=== PATIENT | female | born 1960 | race Caucasian/White ===

== ENCOUNTER → 2017-06-01 10:09 | Outpatient (CLI) | payer MEDICAID, SELFPAY ==
[2017-06-01 10:13] LABS: Adenovirus,PCR Not Detected (NotDetected); Bordetella Pertussis Not Detected (NotDetected); Chlamydophila Pneumoniae, PCR Not Detected (NotDetected); Coronavirus 229E Not Detected (NotDetected); Coronavirus NL63 Not Detected (NotDetected); Coronavirus OC43 Not Detected (NotDetected); Coronovirus HKU1,PCR Not Detected (NotDetected); Human Metapneumovirus Not Detected (NotDetected); Influenza A, PCR Not Detected (NotDetected); Influenza AH1, 2009 Not Detected (NotDetected); Influenza AH1, PCR Not Detected (NotDetected); Influenza AH3,PCR Not Detected (NotDetected); Influenza B, PCR Not Detected (NotDetected); Mycoplasma Pneumoniae, PCR Not Detected (NotDected); Parainfluenza 1, PCR Not Detected (NotDetected); Parainfluenza 2, PCR Not Detected (NotDetected); Parainfluenza 3, PCR Not Detected (NotDetected); Parainfluenza 4, PCR Not Detected (NotDetected); Respiratory Syncytial Virus Not Detected (NotDetected)
[2017-06-01 21:09] LABS: Rhinovirus/Enterovirus Detected (NotDetected)
== END ==
PROVIDERS: Visit Provider Physician Assistant
DX: R50.9 Fever, unspecified (principal); R09.89 Other specified symptoms and signs involving the circulatory and respiratory systems
CPT/HCPCS: 87486; 87581; 87633; 87798

== ENCOUNTER → 2017-12-18 09:47 | Outpatient (CLI) | payer MEDICAID, SELFPAY ==
[2017-12-18 09:54] LABS: Adenovirus,PCR Not Detected (NotDetected); Bordetella Pertussis Not Detected (NotDetected); Chlamydophila Pneumoniae, PCR Not Detected (NotDetected); Coronavirus 229E Not Detected (NotDetected); Coronavirus NL63 Not Detected (NotDetected); Coronavirus OC43 Not Detected (NotDetected); Coronovirus HKU1,PCR Not Detected (NotDetected); Human Metapneumovirus Not Detected (NotDetected); Influenza A, PCR Not Detected (NotDetected); Influenza AH1, 2009 Not Detected (NotDetected); Influenza AH1, PCR Not Detected (NotDetected); Influenza AH3,PCR Not Detected (NotDetected); Influenza B, PCR Not Detected (NotDetected); Mycoplasma Pneumoniae, PCR Not Detected (NotDected); Parainfluenza 1, PCR Not Detected (NotDetected); Parainfluenza 2, PCR Not Detected (NotDetected); Parainfluenza 3, PCR Not Detected (NotDetected); Parainfluenza 4, PCR Not Detected (NotDetected); Respiratory Syncytial Virus Not Detected (NotDetected); Rhinovirus/Enterovirus Not Detected (NotDetected)
== END ==
PROVIDERS: PCP Physician Assistant; Visit Provider Physician Assistant
DX: R05 Cough (principal); R09.89 Other specified symptoms and signs involving the circulatory and respiratory systems
CPT/HCPCS: 87486; 87581; 87633; 87798

== ENCOUNTER 2023-08-24 11:09 | Outpatient (CLI) | payer MEDICAID, SELFPAY ==
--- NOTE | 2023-08-24 | CA_ITS ---
APPROVED REPORT Exam: Pharmacologic Technologist: Yoselin James, Ht: 5 ft 7 in Wt: 250 lbs BSA: 2.22 m2 HR: 85 bpm BP: 110/74 mmHg Rhythm: NSR Medical History Medical History: HTN, Hyperlipidemia, Diabetes, Smoking Medications: Lisinopril,,,,, Aspirin,,,,, Atenolol,,,,, Metformin,,,,, Gabapentin,,,,, Atorvastatin,,,,, Glipizide,,,,, Combivent,,,,, TopIRAMATE,,,,, CloPIdogrel,,,,, LoraTADINE,,,,, SeMaglutide,,,,, Cardiac Risk Factors: HTN, Hyperlipidemia, , Diabetes , Smoking Stress Test Details Test: LEXISCAN HR Resting HR: 85 bpm Max Heart Rate (APMHR): 159 bpm Max HR Achieved: 98 bpm Target HR (85% APMHR): 135 bpm % of APMHR: 62 Recovery HR: 91 bpm BP Resting BP: 110/74 mmHg Max BP: 127/66 mmHg Recovery BP: 127.0/66.0 mmHg ECG Resting ECG: NSR Stress ECG: No significant ST changes Arrhythmia: None Clinical Exercise duration: 04:01 min Highest Stage Achieved: Exercise capacity: 1.0 METs Stress ECG Conclusion PT HAD SOA AND HEAD DISCOMFORT NO CP NO SIGNIFICANT ST CHANGES UNREMARKABLE LEXISCAN STRESS Test Summary REST 10:03 . . 85 . 110/ 74 . . Stage 1 01:00 . . 92 . . . . Stage 2 01:00 . . 95 . 107/ 56 . . Stage 3 01:00 . . 93 . 116/ 70 . . Stage 4 01:00 . . 93 . 125/ 73 . . Stage 4 01:01 . . 93 . 125/ 73 . Stop exercise at 04:01 RECOVERY 01:00 . . 92 . . . . RECOVERY 02:00 . . 91 . . . . RECOVERY 03:00 . . 91 . 127/ 66 . . RECOVERY 03:35 . . 90 . 127/ 66 . . Electronically signed by : Maria Elena Marley MD 08/27/2023 13:08:30
--- NOTE | 2023-08-24 11:10 | NM_ITS ---
APPROVED REPORT Exam: Nuclear Stress Test Indication: CAD, H/O LA, 5 STENTS, HTN, DM, HYPERLIPIDEMIA, TOB USE, FM HX, ANGINE, SOB, PALPITATIONS, FATIGUE Patient Location: Outpatient Stress Tech: Yoselin James [place] Tech:Celine CasasKARINA dewey RT (R)(N)(M) Ht: 5 ft 7 in Wt: 250 lbs Bra Size: DD HR: 85 bpm BP: 110/74 mmHg BSA: 2.22 m2 TID: 1.16 BMI: 39.1 History: CAD, H/O LA, 5 STENTS, HTN, DM, HYPERLIPIDEMIA, TOB USE, FM HX, ANGINE, SOB, PALPITATIONS, FATIGUE Procedure: Patient received 0.4 mg of intravenous Lexiscan, resting heart rate 85 bpm, resting blood pressure 110/74 mmHg, with Lexiscan maximum heart rate achieved was 98 bpm which is % of the maximum predicted heart rate and blood pressure was 127/66 mmHg. With Lexiscan, patient denied any complaint of chest pain. Cardiac Stress and Resting SPECT Images: Cardiac Stress and Resting SPECT images were obtained using technetium 99m Myoview 31.4 mCi stress and 10.71 mCi at rest. Resting and stress imaging in supine and prone positions demonstrate no evidence of fixed or reversible perfusion defects. Gated imaging demonstrates normal global and regional LV systolic function. LVEF is calculated at 66%. Conclusion: No evidence of fixed or reversible perfusion defects. Gated imaging demonstrates normal global and regional LV systolic function. LVEF is calculated at 66%. Electronically signed by : Maria Elena Marley MD 08/27/2023 13:10:39
--- NOTE | 2023-08-24 11:22 | CA_ITS ---
FINAL REPORT TECHNIQUE: Color Doppler, duplex Doppler and mackay scale sonography of the bilateral neck vasculature was performed. Velocities were measured in the carotid arteries. Stenosis evaluation based on velocity criteria. CLINICAL HISTORY: NICA H/O L CAROTID SURGERY COMPARISON: None FINDINGS: The peak systolic velocity of the right common carotid artery is 99 cm/sec and internal carotid artery 147 cm/sec. The diastolic velocity in the internal carotid artery is 50 to cm/sec. The ICA/CCA ratio is 1.89. Visually, a small amount of plaque is seen. These findings are consistent with less than 50% stenosis. The external carotid artery is patent. The right vertebral artery is patent with antegrade flow. The left common carotid artery appears patent, however no velocity measurements were obtained. 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 The left vertebral artery is patent with antegrade flow. IMPRESSION: No evidence of carotid stenosis on the right side. 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 Bilateral patent vertebral arteries. If indicated, CTA or MRA could further evaluate. Reviewed, Interpreted and Dictated by Issa Werner III, MD Transcribed by Tara Lemus Authenticated and . [facility]
[2023-08-24] MEDS: SODIUM CHLORIDE 0.9% 10ML SYR (RAD ONLY) 10 ML IV ×2 (11:30→12:59)
[2023-08-24] MEDS: REGADENOSON 0.4MG/5ML SYRINGE 0.400000000000000022 MG IV (12:59)
[2023-08-24] MEDS: ISOTOPE MYOVIEW (PER STUDY) 1 DOSE IV (13:00)
== END 2023-08-24 23:59 | disposition home or self-care (01) ==
LOC: RAD 11:10
PROVIDERS: PCP Nurse Practitioner Family; Visit Provider Nurse Practitioner Family
DX: R06.02 Shortness of breath (principal); I25.118 Atherosclerotic heart disease of native coronary artery with other forms of angina pectoris; I65.23 Occlusion and stenosis of bilateral carotid arteries
CPT/HCPCS: 78452; 93017; 93018; 93880; A9502; J2785

== ENCOUNTER → 2024-08-21 06:52 | Day surgery (SDC) | payer MEDICAID, SELFPAY ==
[2024-08-19 15:38] VITALS: BMI 34.4
[2024-08-21] MEDS: LACTATED RINGERS 1000ML 1,000 ML 50 ML IV (07:41)
[2024-08-21 07:44] VITALS: BP 117/60; PULSE 79; RESP 18; TEMP 36.2; O2SAT 97
[2024-08-21 07:58] LABS: POC Glucose,Bedside 152 (70-110)
--- NOTE | 2024-08-21 08:15 | EXP.HP ---
History of Present Illness *Admission Date: 08/21/24 *Reason for visit:: Personal history of adenomatous colon polyps *History of present illness: Mrs. Benitez is a 64-year-old female who is here for surveillance colonoscopy secondary to a personal history of adenomatous colon polyps. The examination is deemed medically necessary for surveillance colonoscopy. The patient has been seen, interviewed and examined prior to the procedure by both myself and the anesthesia provider. [facility] Disclaimer: The information contained in this section may have been updated after the patient was seen, as this information can be updated by other users. Medical History (Updated 08/21/24 @ 08:16 by Stefan Springer II, MD) Encounter for pre-operative cardiovascular clearance Stenosis of carotid artery Peripheral arterial disease Diabetes mellitus Hyperlipidemia Hypertension SOB (shortness of breath) on exertion Angina pectoris COPD mixed type CAD (coronary artery disease) Surgical History S/P cardiac cath Family History Other No significant family history Social History Smoking Status: Current every day smoker tobacco type: cigarettes alcohol intake: never substance use type: denies use current occupational status: other Travel in the last 8 weeks?: None (NA) caffeine: Yes Have you lived/traveled outside [place] in past 30 days?: No Contact w/someone who lives/traveled outside US past 30 days?: No Exposure to someone with infectious disease in past 14 days?: No Do you have a fever (greater than 100.4 F or 38 C)?: No Have you tested positive for COVID-19?: No Exposed to someone with COVID-19 in past 14 days?: No Do you have a sore throat?: No Do you have a cough?: No Do you have any weakness?: No Do you have any diarrhea?: No Are you experiencing any unusual bleeding?: No Do you have any muscle aches/pain?: No Do you have any abdominal pain?: No Are you experiencing loss of taste or smell?: No Other Medical History Have you received the Flu Vaccine for this season: No Have you received the Pneumonia Vaccine: No Review of Systems Review of Systems Review of systems (narrative): Negative *Cardiovascular Comments: Negative *Gastrointestinal Comments: Negative *Genitourinary Comments: Negative *Musculoskeletal Comments: Negative *Neurologic Comments: Negative Meds Home Medications and Allergies Home Medications ?Medication ?Instructions ?Recorded ?Confirmed ?Type atenolol 50 mg tablet 50 mg PO DAILY bp 10/04/18 08/21/24 History atorvastatin 40 mg tablet 40 mg PO HS Cholesterol 10/04/18 08/21/24 History clopidogrel 75 mg tablet 75 mg PO DAILY heart. 10/04/18 08/21/24 History aspirin 81 mg tablet,delayed 81 mg PO DAILY 08/21/23 08/21/24 History release bupropion HCl 150 mg tablet,12 hr 150 mg PO BID 08/21/23 08/21/24 History sustained-release esomeprazole magnesium 20 mg 20 mg PO DAILY 08/21/23 08/21/24 History capsule,delayed release gabapentin 400 mg capsule 400 mg PO BID 08/21/23 08/21/24 History glipizide 10 mg tablet 10 mg PO DAILY 08/21/23 08/21/24 History insulin detemir U-100 100 unit/mL 40 unit SQ BID 08/21/23 08/21/24 History (3 mL) subcutaneous pen (Levemir FlexPen) ipratropium 20 mcg-albuterol 100 2 puff inhalation BID 08/21/23 08/21/24 History mcg/actuation mist for inhalation (Combivent Respimat) isosorbide mononitrate 30 mg 30 mg PO DAILY #90 tabs 08/21/23 08/21/24 Rx tablet,extended release 24 hr lisinopril 10 mg tablet 10 mg PO DAILY 08/21/23 08/21/24 History loratadine 10 mg tablet 10 mg PO DAILY 08/21/23 08/21/24 History metformin 1,000 mg tablet 1,000 mg PO BID 08/21/23 08/21/24 History oxycodone-acetaminophen 10 mg-325 1 tab PO BID PRN Pain 08/21/23 08/21/24 History mg tablet semaglutide 1 mg/dose (4 mg/3 mL) 1 mg SQ WEEKLY 08/21/23 08/21/24 History subcutaneous pen injector (Ozempic) topiramate 100 mg capsule,extended 100 mg PO DAILY 08/21/23 08/21/24 History release 24 hr ranolazine 500 mg tablet,extended See Rx Instructions .Route 02/18/24 08/21/24 Rx release,12 hr .COMPLEX #180 tabs sodium,potassium,mag sulfates 17.5 See Rx Instructions PO .COMPLEX 07/14/24 08/21/24 Rx gram-3.13 gram-1.6 gram oral soln #354 mL (Suprep Bowel Prep Kit) New Prescriptions to Start Prescriptions: Allergies Allergy/AdvReac Type Severity Reaction Status Date / Time No Known Allergies Allergy Verified 08/21/24 07:43 Exam Data for Last 24 hours Vital signs and Labs for Last 24 Hours: Temp Pulse Resp BP Pulse Ox O2 Del Method 97.2 F L 79 18 117/60 97 Room Air 08/21/24 07:44 08/21/24 07:44 08/21/24 07:44 08/21/24 07:44 08/21/24 07:44 08/21/24 07:44 Laboratory Results - last 24 hr 08/21/24 07:50: POC Glucose 152 H I & O for Last 24 hours: Intake & Output 08/18/24 08/19/24 08/20/24 08/21/24 23:59 23:59 23:59 23:59 Weight 220 lb *Routine HEENT Exam Head: Present normocephalic Eye: Present EOMI and PERRL ENT: Present mucous membranes moist *Routine Neck Exam Neck: Present supple *Routine Respiratory Exam Respiratory: Present CTA bilaterally *Routine Cardiovascular Exam Cardiovascular: Present RRR *Routine Abdominal Exam Abdominal: Present soft and normoactive bowel sounds; Absent tenderness *Routine Rectal Exam Rectal:: deferred *Routine Genitalia Exam Genitalia:: deferred *Routine Extremities Exam Extremities: Absent cyanosis, clubbing or edema *Routine Skin Exam Skin: Present warm; Absent rash *Routine Neurological Exam Neurological: Present alert and oriented X3 Assessment and Plan *Assessment and plan (1) Personal history of adenomatous and serrated colon polyps: Status: Acute Category: Medical Code(s): Z86.0101 - Personal history of adenomatous and serrated colon polyps Plan A/P: 1. Personal history of adenomatous colon polyps is the preprocedural diagnosis. The patient's last colonoscopy in November 2018 revealed 12 polyps (tubular adenomas x 9/hyperplastic polyps x 3) which were removed. The patient will be anesthetized/sedated using MAC sedation. The patient has been seen and examined. Cardiac and lung assessment prior to the examination is stable. Proceed with planned surveillance colonoscopy.
--- NOTE | 2024-08-21 08:16 | P.PNANES_ITS ---
[facility] Disclaimer: The information contained in this section may have been updated after the patient was seen, as this information can be updated by other users. Medical History (Updated 08/21/24 @ 08:16 by Stefan Springer II, MD) Encounter for pre-operative cardiovascular clearance Stenosis of carotid artery Peripheral arterial disease Diabetes mellitus Hyperlipidemia Hypertension SOB (shortness of breath) on exertion Angina pectoris COPD mixed type CAD (coronary artery disease) Surgical History S/P cardiac cath Family History Other No significant family history Social History Smoking Status: Current every day smoker tobacco type: cigarettes alcohol intake: never substance use type: denies use current occupational status: other Travel in the last 8 weeks?: None (NA) caffeine: Yes Have you lived/traveled outside [place] in past 30 days?: No Contact w/someone who lives/traveled outside US past 30 days?: No Exposure to someone with infectious disease in past 14 days?: No Do you have a fever (greater than 100.4 F or 38 C)?: No Have you tested positive for COVID-19?: No Exposed to someone with COVID-19 in past 14 days?: No Do you have a sore throat?: No Do you have a cough?: No Do you have any weakness?: No Do you have any diarrhea?: No Are you experiencing any unusual bleeding?: No Do you have any muscle aches/pain?: No Do you have any abdominal pain?: No Are you experiencing loss of taste or smell?: No [facility] Anesthesia Checklist Patient Identification Patient Identification: Arm Band Structural Data Admitted From: Home Planned Operative Procedure/s: Colonoscopy Consent for Planned Operative Procedure(s) Verified: Yes Verified Documents: Surgical Consent and History and Physical NPO Status Verified Time NPO: 00:00 Additional verifications Anesthesia Reactions: No Airway Assessment Mallampati Score:: Class II C-Spine Mobility Assessed: Yes TMJ Mobility Assessed: Yes Dentition: Edentulous (upper and lower dentures removed) Neurological Assessment Level of Consciousness: Awake, Alert and Appropriate Anesthesia Plan Anesthesia Risk discussed: Yes Anesthesia Plan: Verified ASA Class: III Anesthesia Type: MAC
--- NOTE | 2024-08-21 08:48 | HMH.PROCNOTE ---
[facility] Procedure Note Date: 08/21/24 Time: 08:48 Procedure Note:: Colonoscopy Procedure Report: Colonoscopy with cold snare polypectomy Endoscopist: Stefan Springer II, MD Referring physician: BO Collins Date of Procedure: August 21, 2024 Equipment: Olympus 190 variable stiffness pediatric colonoscope Sedation: MAC sedation Indication: Mrs. Benitez is a 64-year-old female who is here for follow-up surveillance colonoscopy secondary to a personal history of adenomatous colon polyps. The patient did have a colonoscopy in November 2018 and had 12 polyps (tubular adenomas x 9/hyperplastic polyps x 3) removed. She reports no abdominal pain, weight loss, change in her bowel habits or rectal bleeding. She reports no family history of colon cancer. Procedure: Prior to the procedure, a history and physical exam was performed, and patient's medications and allergies were reviewed. The risks, benefits and alternatives of the sedation and procedure were discussed with the patient. All questions were answered and informed consent was obtained. The patient was brought to the procedure room. Patient identification and proposed procedure were verified by the physician and the nurse. The patient was placed in a left lateral decubitus position and the scope was passed under direct vision. Throughout the procedure, the patient's blood pressure, pulse, and oxygen saturations were monitored continuously. The colonoscopy was accomplished without difficulty. The patient tolerated the procedure well. Findings: On digital rectal examination there was normal rectal tone. There were no external hemorrhoids. The colonoscope was introduced through the anal canal to the rectum and advanced to the cecum. The ileocecal valve and appendiceal orifice were identified. The scope was advanced a short distance into the ileum which appeared grossly normal. The scope was then withdrawn into the colon. There were 5 colon polyps (ascending x 1 (3 mm), transverse x 1 (4 mm), descending x 1 (4 mm) and sigmoid x 2 (6 and 3 mm)). These were all removed via cold snare polypectomy. The remaining cecum, ascending, transverse, descending, sigmoid and rectum were grossly normal. There were no other mucosal abnormalities identified. Upon retroflexion within the rectum there were grade 1-2 internal hemorrhoids. The preparation was excellent throughout with [place] Preparation Score of 9. The cecal time was 12 minutes. Impression: 1. Diminutive colonic polyps x 5 Plan: I will follow-up the polyp histology and recommend repeat surveillance colonoscopy again in 5 years based upon the pathology.
[2024-08-21 08:50] VITALS: BP 82/45; PULSE 73; RESP 16; TEMP 36.3; O2SAT 98
[2024-08-21 09:00] VITALS: BP 115/50; PULSE 71; RESP 16; O2SAT 100
[2024-08-21 09:10] VITALS: BP 102/65; PULSE 70; RESP 16; O2SAT 99
[2024-08-21 09:20] VITALS: BP 101/49; PULSE 69; RESP 16; O2SAT 100
== END | disposition home or self-care (01) ==
PROVIDERS: PCP Nurse Practitioner Family; Visit Provider Internal Medicine Gastroenterology
PROC: 0DJD8ZZ Inspection of Lower Intestinal Tract, Via Natural or Artificial Opening Endoscopic (ICD-10-PCS; CPT 45378; principal; 2024-08-21 08:30)
DX: D12.2 Benign neoplasm of ascending colon (principal); D12.5 Benign neoplasm of sigmoid colon; I25.10 Atherosclerotic heart disease of native coronary artery without angina pectoris; J44.89 Other specified chronic obstructive pulmonary disease; E11.9 Type 2 diabetes mellitus without complications; E78.5 Hyperlipidemia, unspecified; I10 Essential (primary) hypertension; Z86.0101 Personal history of adenomatous and serrated colon polyps; F17.210 Nicotine dependence, cigarettes, uncomplicated; Z79.899 Other long term (current) drug therapy; Z79.4 Long term (current) use of insulin; Z79.82 Long term (current) use of aspirin
CPT/HCPCS: 45385; 82962; J7120

== ENCOUNTER 2024-09-01 10:46 | Outpatient (CLI) | payer MEDICAID, SELFPAY ==
--- OUTSIDE RECORDS SUMMARY | 2024-09-01 10:56 | XMS_ITS | Data Portability ---
Author Organization [place] [employer] [place] - [facility] Address [address] [place] [address] Assessment No assessment recorded. Plan of Treatment Reminders Order Date Submit Date Provider Last Modified By Organization Details Last Modified Time Details Appointments None recorded. Lab urinalysis, dipstick [address], [id number], 5 09:08:39 culture, urine 2024 025 [facility] ([place]), [address] [place] [address], [address], 5 17:08:52 vitamin D, 25-hydroxy, total, serum 2024 025 [facility] [address] [place] [address], [address], 5 17:08:51 HbA1c (hemoglobin A1c), blood [address], [address], 5 09:08:39 comprehensi ve metabolic 1998 panel, serum or plasma 2024 025 [facility] [address] [place] [address], [address], 5 17:08:50 CBC w/ auto diff 2024 025 [facility] [address] [place] [address], [address], 5 17:08:49 HbA1c (hemoglobin A1c), blood [address], [address] [place] [address], [address], 5 08:44:27 vitamin D, 25-hydroxy, total, serum 2023 024 [facility] ([place]), [address] [place] [address], [address], 4 07:09:40 HbA1c (hemoglobin A1c), blood [address], [address] [place] [address], [address], 4 08:45:09 CMP, serum or plasma 2023 024 [facility] ([place]), [address] [place] [address], [address], 4 07:09:39 CBC w/ auto diff 2023 024 [facility] ([place]), [address] [place] [address], [address], 4 07:09:39 lipid panel, serum 2023 024 [facility]), [address] [place] [address], [address], 4 07:09:40 HbA1c (hemoglobin A1c), blood [address], [address] [place] [address], [address], 4 11:15:37 CBC w/ auto diff 2023 024 [facility], [address], [place], [address], 4 06:24:27 CMP, serum or plasma 2023 024 [facility], [address], [place], [address], 4 06:24:27 Referral cardiologis t referral - first available appt 2023 024 [facility], [address], [place], [address], 4 14:07:[address] referral - first avail 2023 024 berlin Levi MD, [address], [address], [place], [address], 4 16:09:11 Procedures colonoscopy screening (PROC) - [facility] appt first week of JUNE please 2024 025 ANTOLIN Springer MD, [address], [place], [place], [address], 5 10:38:34 Surgeries None recorded. Imaging None recorded. Medication Orders Macrobid 100 mg capsule 2024 025 [facility], [address] [place] [address], [address], 5 09:47:45 Wellbutrin XL 300 mg 24 hr tablet, extended release 2023 024 [facility], [address] [place] [address], [address], 5 09:34:17 bupropion HCl SR 150 mg tablet,12 hr sustained-r elease 2023 024 [email or web address] [facility], [address] [place] [address], [address], 5 08:47:10 Nicoderm CQ 21 mg/24 hr daily transdermal patch 2023 0[facility] [address] [place] [address], [address], 4 13:28:48 Patient TargetsNo targets recorded. Patient InstructionsNo instructions recorded. Reason for Referral Rn Mental Health Referral for A cute hypoxemic respiratory failure first avail Referring Physician: Jamie Harrington [facility], Encounter Date: 08/03/2023 Gis Analyst Referral for At herosclerosis of coronary artery without angina pectoris first available appt Referring Physician: Jamie Harrington [facility], Encounter Date: 08/03/2023 Results Created Date Observation Date Name Description Value Unit Range Abnormal Flag Note LastModifiedBy Organization Detail LastModifiedTime 08/03/19 24 08/04/2023 COMPR EHENS KYLIE METAB OLIC PANEL glucose 102 mg/dL 65-139 normal Non-f astin g refer ence inter sven Not Available [facility] [address] [place], [address], 08/04/2023 07:06:27 08/03/19 24 08/04/2023 COMPR EHENS KYLIE METAB OLIC PANEL urea nitrogen (BUN) 19 mg/dL 7-25 normal Not Available [facility] [address] [facility] [place], [address], 08/04/2023 07:06:27 08/03/19 24 08/04/2023 COMPR EHENS KYLIE METAB OLIC PANEL creatinine 0.97 mg/dL 0.50-1 .05 normal Not Available [facility] [address] [place], [address], 08/04/2023 07:06:27 08/03/19 24 08/04/2023 COMPR EHENS KYLIE METAB OLIC PANEL eGFR 66 mL/mi n/1.7 3m2 > or = 60 normal Not Available [facility] [address] [place], [address], 08/04/2023 07:06:27 08/03/19 24 08/04/2023 COMPR EHENS KYLIE METAB OLIC PANEL BUN/creatini ne ratio SEE NOTE: (calc ) 6-22 Not Repor dileep: BUN and Creat inine are withi n refer ence range . Not Available [facility] [address] [place], [address], 08/04/2023 07:06:27 08/03/19 24 08/04/2023 COMPR EHENS KYLIE METAB OLIC PANEL sodium 141 mmol/ L 135-14 6 normal Not Available [facility] [address] [place], [address], 08/04/2023 07:06:27 08/03/19 24 08/04/2023 COMPR EHENS KYLIE METAB OLIC PANEL potassium 3.8 mmol/ L 3.5-5. 3 normal Not Available [facility] [address] [facility] [place], [address], 08/04/2023 07:06:27 08/03/19 24 08/04/2023 COMPR EHENS KYLIE METAB OLIC PANEL chloride 103 mmol/ L 98-110 normal Not Available [facility] [address] [facility] [place], [address], 08/04/2023 07:06:27 08/03/19 24 08/04/2023 COMPR EHENS KYLIE METAB OLIC PANEL carbon dioxide 24 mmol/ L 20-32 normal Not Available [facility] [address] [facility] [place], [address], 08/04/2023 07:06:27 08/03/19 24 08/04/2023 COMPR EHENS KYLIE METAB OLIC PANEL calcium 9.8 mg/dL 8.6-10 .4 normal Not Available [facility] [address] [place], [address], 08/04/2023 07:06:27 08/03/19 24 08/04/2023 COMPR EHENS KYLIE METAB OLIC PANEL protein, total 6.9 g/dL 6.1-8. 1 normal Not Available [facility] [address] [facility] [place], [address], 08/04/2023 07:06:27 08/03/19 24 08/04/2023 COMPR EHENS KYLIE METAB OLIC PANEL albumin 3.9 g/dL 3.6-5. 1 normal Not Available [facility] [address] [place], [address], 08/04/2023 07:06:27 08/03/19 24 08/04/2023 COMPR EHENS KYLIE METAB OLIC PANEL globulin 3.0 g/dL_ (calc ) 1.9-3. 7 normal Not Available [facility] [address] [facility] [place], [address], 08/04/2023 07:06:27 08/03/19 24 08/04/2023 COMPR EHENS KYLIE METAB OLIC PANEL albumin/glob ulin ratio 1.3 (calc ) 1.0-2. 5 normal Not Available [facility] [address] [facility] [place], [address], 08/04/2023 07:06:27 08/03/19 24 08/04/2023 COMPR EHENS KYLIE METAB OLIC PANEL bilirubin, total 0.3 mg/dL 0.2-1. 2 normal Not Available [facility] [address] [place], [address], 08/04/2023 07:06:27 08/03/19 24 08/04/2023 COMPR EHENS KYLIE METAB OLIC PANEL alkaline phosphatase 76 U/L 37-153 normal Not Available [facility] [address] [place], [address], 08/04/2023 07:06:27 08/03/19 24 08/04/2023 COMPR EHENS KYLIE METAB OLIC PANEL AST 10 U/L 10-35 normal Not Available [facility] [address], [place], [address], 08/04/2023 07:06:27 08/03/19 24 08/04/2023 COMPR EHENS KYLIE METAB OLIC PANEL ALT 10 U/L 6-29 normal Not Available [facility] [address] [place], [address], 08/04/2023 07:06:27 08/03/19 24 08/04/2023 CBC (INCL UDES DIFF/ PLT) white blood cell count 19.4 thous and/u L 3.8-10 .8 high Not Available [facility] [address] [place], [address], 08/04/2023 06:24:27 08/03/19 24 08/04/2023 CBC (INCL UDES DIFF/ PLT) red blood cell count 4.46 paris on/uL 3.80-5 .10 normal Not Available [facility] [address], [place], [address], 08/04/2023 06:24:27 08/03/19 24 08/04/2023 CBC (INCL UDES DIFF/ PLT) hemoglobin 13.8 g/dL 11.7-1 5.5 normal Not Available [facility] [address], [place], [address], 08/04/2023 06:24:27 08/03/19 24 08/04/2023 CBC (INCL UDES DIFF/ PLT) hematocrit 42.3 % 35.0-4 5.0 normal Not Available [facility] [address], [place], [address], 08/04/2023 06:24:27 08/03/19 24 08/04/2023 CBC (INCL UDES DIFF/ PLT) MCV 94.8 fL 80.0-1 00.0 normal Not Available [facility] [address], [place], [address], 08/04/2023 06:24:27 08/03/19 24 08/04/2023 CBC (INCL UDES DIFF/ PLT) MCH 30.9 pg 27.0-3 3.0 normal Not Available [facility] [address], [place], [address], 08/04/2023 06:24:27 08/03/19 24 08/04/2023 CBC (INCL UDES DIFF/ PLT) MCHC 32.6 g/dL 32.0-3 6.0 normal Not Available [facility] [address], [place], [address], 08/04/2023 06:24:27 08/03/19 24 08/04/2023 CBC (INCL UDES DIFF/ PLT) RDW 13.3 % 11.0-1 5.0 normal Not Available [facility] [address], [place], [address], 08/04/2023 06:24:27 08/03/19 24 08/04/2023 CBC (INCL UDES DIFF/ PLT) platelet count 323 thous and/u L 140-40 0 normal Not Available [facility] [address], [place], [address], 08/04/2023 06:24:27 08/03/19 24 08/04/2023 CBC (INCL UDES DIFF/ PLT) MPV 10.9 fL 7.5-12 .5 normal Not Available [facility] [address] [facility], [place], [address], 08/04/2023 06:24:27 08/03/19 24 08/04/2023 CBC (INCL UDES DIFF/ PLT) absolute neutrophils 93264 cells /uL 1500-7 800 high Not Available [facility] [address] [facility] [facility], [place], [address], 08/04/2023 06:24:27 08/03/19 24 08/04/2023 CBC (INCL UDES DIFF/ PLT) absolute lymphocytes 2929 cells /uL 850-39 00 normal Not Available [facility] [address] [facility], [place], [address], 08/04/2023 06:24:27 08/03/19 24 08/04/2023 CBC (INCL UDES DIFF/ PLT) absolute monocytes 757 cells /uL 200-95 0 normal Not Available [facility] [address] [facility], [place], [address], 08/04/2023 06:24:27 08/03/19 24 08/04/2023 CBC (INCL UDES DIFF/ PLT) absolute eosinophils 155 cells /uL 15-500 normal Not Available [facility] [address] [facility], [place], [address], 08/04/2023 06:24:27 08/03/19 24 08/04/2023 CBC (INCL UDES DIFF/ PLT) absolute basophils 78 cells /uL 0-200 normal Not Available [facility] [address] [facility], [place], [address], 08/04/2023 06:24:27 08/03/19 24 08/04/2023 CBC (INCL UDES DIFF/ PLT) neutrophils 79.8 % normal Not Available [facility] [address] [facility], [place], [address], 08/04/2023 06:24:27 08/03/19 24 08/04/2023 CBC (INCL UDES DIFF/ PLT) lymphocytes 15.1 % normal Not Available [facility] [address] [facility], [place], [address], 08/04/2023 06:24:27 08/03/19 24 08/04/2023 CBC (INCL UDES DIFF/ PLT) monocytes 3.9 % normal Not Available [facility] [address] [facility], [place], [address], 08/04/2023 06:24:27 08/03/19 24 08/04/2023 CBC (INCL UDES DIFF/ PLT) eosinophils 0.8 % normal Not Available [facility] [address] [facility] [place], [address], 08/04/2023 06:24:27 08/03/19 24 08/04/2023 CBC (INCL UDES DIFF/ PLT) basophils 0.4 % normal Not Available [facility] [address] [facility] [place], [address], 08/04/2023 06:24:27 10/01/19 24 10/01/2023 HbA1c (hemo globi n A1c), blood HbA1c 7.2 Not Available [address], [address], 10/01/2023 08:02:52 01/01/2001/02/2024 CBC WITH DIFFE RENTI AL/PL ATELE T WBC 13.3 x10e3 /uL 3.4-10 .8 above high normal Not Available [facility] ([facility]) [address] [facility], [place], [address], 01/02/2024 07:09:38 01/01/20 01/02/2024 CBC WITH DIFFE RENTI AL/PL ATELE T RBC 4.07 x10e6 /uL 3.77-5 .28 normal Not Available [facility] ([facility]) [address] [facility], [place], [address], 01/02/2024 07:09:38 01/01/20 24 01/02/2024 CBC WITH DIFFE RENTI AL/PL ATELE T hemoglobin 13.4 g/dL 11.1-1 5.9 normal Not Available [facility] ([facility]) [address] [facility], [place], [address], 01/02/2024 07:09:38 01/01/2001/02/2024 CBC WITH DIFFE RENTI AL/PL ATELE T hematocrit 40.2 % 34.0-4 6.6 normal Not Available [facility] ([facility]) [address] [facility], [place], [address], 01/02/2024 07:09:38 01/01/2001/02/2024 CBC WITH DIFFE RENTI AL/PL ATELE T MCV 99 fL 79-97 above high normal Not Available [facility] ([facility]) [address] [place], [address], 01/02/2024 07:09:38 01/01/2001/02/2024 CBC WITH DIFFE RENTI AL/PL ATELE T MCH 32.9 pg 26.6-3 3.0 normal Not Available [facility] ([facility]) [address] [place], [address], 01/02/2024 07:09:38 01/01/2001/02/2024 CBC WITH DIFFE RENTI AL/PL ATELE T MCHC 33.3 g/dL 31.5-3 5.7 normal Not Available [facility] ([facility]) [address] [place], [address], 01/02/2024 07:09:38 01/01/20 24 01/02/2024 CBC WITH DIFFE RENTI AL/PL ATELE T RDW 12.8 % 11.7-1 5.4 Not Available [facility] ([facility]) [address] [facility], [place], [address], 01/02/2024 07:09:38 01/01/20 24 01/02/2024 CBC WITH DIFFE RENTI AL/PL ATELE T platelets 291 x10e3 /uL 150-45 0 normal Not Available [facility] ([facility]) [address] [facility], [place], [address], 01/02/2024 07:09:38 01/01/2001/02/2024 CBC WITH DIFFE RENTI AL/PL ATELE T neutrophils 78 % not estab. normal Not Available [facility] ([facility]) [address] [facility], [place], [address], 01/02/2024 07:09:38 01/01/2001/02/2024 CBC WITH DIFFE RENTI AL/PL ATELE T lymphs 16 % not estab. normal Not Available [facility] ([facility]) [address] [facility], [place], [address], 01/02/2024 07:09:38 01/01/20 24 01/02/2024 CBC WITH DIFFE RENTI AL/PL ATELE T monocytes 4 % not estab. normal Not Available [facility] ([facility]) [address] [facility], [place], [address], 01/02/2024 07:09:38 01/01/2001/02/2024 CBC WITH DIFFE RENTI AL/PL ATELE T eos 1 % not estab. normal Not Available [facility] ([facility]) [address] [facility], [place], [address], 01/02/2024 07:09:38 01/01/20 24 01/02/2024 CBC WITH DIFFE RENTI AL/PL ATELE T basos 1 % not estab. normal Not Available [facility] ([facility]) [address] [place], [address], 01/02/2024 07:09:38 01/01/2001/02/2024 CBC WITH DIFFE RENTI AL/PL ATELE T immature cells CHIEF SUPPLY CHAIN OFFICER Not Available [facility] ([facility]) [address] [place], [address], 01/02/2024 07:09:38 01/01/2001/02/2024 CBC WITH DIFFE RENTI AL/PL ATELE T neutrophils (absolute) 10.4 x10e3 /uL 1.4-7. 0 above high normal Not Available [facility] ([facility]) [address] [facility], [place], [address], 01/02/2024 07:09:38 01/01/2001/02/2024 CBC WITH DIFFE RENTI AL/PL ATELE T lymphs (absolute) 2.2 x10e3 /uL 0.7-3. 1 normal Not Available [facility] ([facility]) [address] [place], [address], 01/02/2024 07:09:38 01/01/2001/02/2024 CBC WITH DIFFE RENTI AL/PL ATELE T monocytes(ab solute) 0.6 x10e3 /uL 0.1-0. 9 normal Not Available [facility] ([facility]) [address] [place], [address], 01/02/2024 07:09:38 01/01/2001/02/2024 CBC WITH DIFFE RENTI AL/PL ATELE T eos (absolute) 0.1 x10e3 /uL 0.0-0. 4 normal Not Available [facility] ([facility]) [address] [place], [address], 01/02/2024 07:09:38 01/01/2009 0101/02/2024 CBC WITH DIFFE RENTI AL/PL ATELE T baso (absolute) 0.1 x10e3 /uL 0.0-0. 2 normal Not Available [facility] ([facility]) [address] [facility], [place], [address], 01/02/2024 07:09:38 01/01/20 24 01/02/2024 CBC WITH DIFFE RENTI AL/PL ATELE T immature granulocytes 0 % not estab. Not Available [facility] ([facility]) [address] [facility], [place], [address], 01/02/2024 07:09:38 01/01/2001/02/2024 CBC WITH DIFFE RENTI AL/PL ATELE T immature grans (abs) 0.0 x10e3 /uL 0.0-0. 1 Not Available [facility] ([facility]) [address] [facility], [place], [address], 01/02/2024 07:09:38 01/01/20 24 01/02/2024 CBC WITH DIFFE RENTI AL/PL ATELE T NRBC [employer]IEF [employer] CH[employer] OFFICER Not Available [facility] ([facility]) [address] [facility], [place], [address], 01/02/2024 07:09:38 01/01/2001/02/2024 CBC WITH DIFFE RENTI AL/PL ATELE T hematology comments: CHIEF SUPPLY CHAIN OFFICER Not Available [facility] ([facility]) [address] [facility], [place], [address], 01/02/2024 07:09:38 01/01/2001/02/2024 COMP. METAB OLIC PANEL (14) glucose 116 mg/dL 70-99 above high normal Not Available [facility] ([facility]) [address] [place], [address], 01/02/2024 07:09:39 01/01/2001/02/2024 COMP. METAB OLIC PANEL (14) BUN 20 mg/dL 8-27 normal Not Available [facility] ([facility]) [address] [facility] [place], [address], 01/02/2024 07:09:39 01/01/20 24 01/02/2024 COMP. METAB OLIC PANEL (14) creatinine 0.95 mg/dL 0.57-1 .00 normal Not Available [facility] ([facility]) [address] [facility] [place], [address], 01/02/2024 07:09:39 01/01/20 24 01/02/2024 COMP. METAB OLIC PANEL (14) eGFR 68 mL/mi n/1.7 3 >59 normal Not Available [facility] ([facility]) [address] [facility], [place], [address], 01/02/2024 07:09:39 01/01/20 24 01/02/2024 COMP. METAB OLIC PANEL (14) BUN/creatini ne ratio 21 12-28 normal Not Available [facility] ([facility]) [address] [facility], [place], [address], 01/02/2024 07:09:39 01/01/20 24 01/02/2024 COMP. METAB OLIC PANEL (14) sodium 141 mmol/ L 134-14 4 normal Not Available [facility] ([facility]) [address] [facility] [place], [address], 01/02/2024 07:09:39 01/01/20 24 01/02/2024 COMP. METAB OLIC PANEL (14) potassium 3.9 mmol/ L 3.5-5. 2 normal Not Available [facility] ([facility]) [address] [facility] [place], [address], 01/02/2024 07:09:39 01/01/20 24 01/02/2024 COMP. METAB OLIC PANEL (14) chloride 104 mmol/ L 96-106 normal Not Available [facility] ([facility]) [address] [facility] [place], [address], 01/02/2024 07:09:39 01/01/20 24 01/02/2024 COMP. METAB OLIC PANEL (14) carbon dioxide, total 21 mmol/ L 20-29 normal Not Available [facility] ([facility]) [address] [facility] [place], [address], 01/02/2024 07:09:39 01/01/20 24 01/02/2024 COMP. METAB OLIC PANEL (14) calcium 9.6 mg/dL 8.7-10 .3 normal Not Available [facility] ([facility]) [address] [facility] [place], [address], 01/02/2024 07:09:39 01/01/20 24 01/02/2024 COMP. METAB OLIC PANEL (14) protein, total 6.8 g/dL 6.0-8. 5 normal Not Available [facility] ([facility]) [address] [facility], [place], [address], 01/02/2024 07:09:39 01/01/2001/02/2024 COMP. METAB OLIC PANEL (14) albumin 4.1 g/dL 3.9-4. 9 normal Not Available [facility] ([facility]) [address] [facility] [place], [address], 01/02/2024 07:09:39 01/01/2001/02/2024 COMP. METAB OLIC PANEL (14) globulin, total 2.7 g/dL 1.5-4. 5 Not Available [facility] ([facility]) [address] [facility] [place], [address], 01/02/2024 07:09:39 01/01/20 24 01/02/2024 COMP. METAB OLIC PANEL (14) bilirubin, total 0.3 mg/dL 0.0-1. 2 normal Not Available [facility] ([facility]) [address] [facility] [place], [address], 01/02/2024 07:09:39 01/01/20 24 01/02/2024 COMP. METAB OLIC PANEL (14) alkaline phosphatase 71 IU/L 44-121 normal Not Available [facility] ([facility]) [address] [facility] [place], [address], 01/02/2024 07:09:39 01/01/20 24 01/02/2024 COMP. METAB OLIC PANEL (14) AST (SGOT) 11 IU/L 0-40 normal Not Available [facility] ([facility]) [address] [facility] [place], [address], 01/02/2024 07:09:39 01/01/20 24 01/02/2024 COMP. METAB OLIC PANEL (14) ALT (SGPT) 8 IU/L 0-32 normal Not Available [facility] ([facility]) [address] [facility], [place], [address], 01/02/2024 07:09:39 01/01/20 24 01/02/2024 LIPID PANEL cholesterol, total 139 mg/dL 100-19 9 normal Not Available [facility] ([facility]) [address] [facility], [place], [address], 01/02/2024 07:09:40 01/01/2001/02/2024 LIPID PANEL triglyceride s 186 mg/dL 0-149 above high normal Not Available [facility] ([facility]) [address] [facility] [place], [address], 01/02/2024 07:09:40 01/01/2001/02/2024 LIPID PANEL HDL cholesterol 39 mg/dL >39 below low normal Not Available [facility] ([facility]) [address] [facility] [place], [address], 01/02/2024 07:09:40 01/01/20 24 01/02/2024 LIPID PANEL VLDL cholesterol hammad 31 mg/dL 5-40 Not Available [facility] ([facility]) [address] [facility], [place], [address], 01/02/2024 07:09:40 01/01/20 24 01/02/2024 LIPID PANEL LDL chol calc ([facility]) 69 mg/dL 0-99 Not Available [facility] ([facility]) [address] [facility], [place], [address], 01/02/2024 07:09:40 01/01/20 24 01/02/2024 LIPID PANEL LDL calc comment: CHIEF SUPPLY CHAIN OFFICER Not Available [facility] ([facility]) [address] [facility], [place], [address], 01/02/2024 07:09:40 01/01/20 24 01/02/2024 VITAM IN D, 25-HY DROXY vitamin D, 25-hydroxy 62.9 NG/mL 30.0-1 00.0 Vitam in D defic iency has been defin ed by the Insti tute of Medic ine and an Endoc rine Socie ty pract ice guide line as a level of serum 25-OH vitam in D less than 20 ng/mL (1,2) . The Endoc rine Socie ty went on to furth er defin e vitam in D insuf ficie ncy as a level betwe en 21 and 29 ng/mL (2). 1. IOM (Inst itute of Medic ine). 2009. Dieta ry refer ence amarilis es for calci um and D. Ruba mason DC: [facility] Press . 2. Delfin rodriguez [place], Sunil steven [place], Brad off-F errar i MUNIZ, et al. Evalu ation , treat ment, and preve ntion of vitam in D defic iency : an Endoc rine Socie ty clini hammad pract ice guide line. JCEM. 2010; 96(7) :1911 -30. Not Available [facility] ([facility]) [address] [facility], [place], [address], 01/02/2024 07:09:40 01/01/20 24 01/01/2024 HbA1c (hemo globi n A1c), blood HbA1c 6.2 Not Available [address], [address], 01/01/2024 08:09:02 04/02/19 25 04/02/2024 HbA1c (hemo globi n A1c), blood HbA1c 6.4 Not Available [address], [address], 04/02/2024 08:26:46 07/03/19 25 07/03/2024 CBC WITH DIFFE RENTI AL/PL ATELE T WBC 16.4 x10e3 /uL 3.4-10 .8 above high normal Not Available [facility] ([facility]) [address] [place], [address], 07/07/2024 17:08:49 07/03/19 25 07/03/2024 CBC WITH DIFFE RENTI AL/PL ATELE T RBC 4.64 x10e6 /uL 3.77-5 .28 normal Not Available [facility] ([facility]) [address] [facility], [place], [address], 07/07/2024 17:08:49 07/03/19 25 07/03/2024 CBC WITH DIFFE RENTI AL/PL ATELE T hemoglobin 15.1 g/dL 11.1-1 5.9 normal Not Available [facility] ([facility]) [address] [facility], [place], [address], 07/07/2024 17:08:49 07/03/19 25 07/03/2024 CBC WITH DIFFE RENTI AL/PL ATELE T hematocrit 45.7 % 34.0-4 6.6 normal Not Available [facility] ([facility]) [address] [place], [address], 07/07/2024 17:08:49 07/03/19 25 07/03/2024 CBC WITH DIFFE RENTI AL/PL ATELE T MCV 99 fL 79-97 above high normal Not Available [facility] ([facility]) [address] [facility], [place], [address], 07/07/2024 17:08:49 07/03/19 25 07/03/2024 CBC WITH DIFFE RENTI AL/PL ATELE T MCH 32.5 pg 26.6-3 3.0 normal Not Available [facility] ([facility]) [address] [facility], [place], [address], 07/07/2024 17:08:49 07/03/19 25 07/03/2024 CBC WITH DIFFE RENTI AL/PL ATELE T MCHC 33.0 g/dL 31.5-3 5.7 normal Not Available [facility] ([facility]) [address] [place], [address], 07/07/2024 17:08:49 07/03/19 25 07/03/2024 CBC WITH DIFFE RENTI AL/PL ATELE T RDW 12.1 % 11.7-1 5.4 Not Available [facility] ([facility]) [address] [place], [address], 07/07/2024 17:08:49 07/03/19 25 07/03/2024 CBC WITH DIFFE RENTI AL/PL ATELE T platelets 304 x10e3 /uL 150-45 0 normal Not Available [facility] ([facility]) [address] [place], [address], 07/07/2024 17:08:49 07/03/19 25 07/03/2024 CBC WITH DIFFE RENTI AL/PL ATELE T neutrophils 80 % not estab. normal Not Available [facility] ([facility]) [address] [place], [address], 07/07/2024 17:08:49 07/03/19 25 07/03/2024 CBC WITH DIFFE RENTI AL/PL ATELE T lymphs 15 % not estab. normal Not Available [facility] ([facility]) [address] [place], [address], 07/07/2024 17:08:49 07/03/19 25 07/03/2024 CBC WITH DIFFE RENTI AL/PL ATELE T monocytes 3 % not estab. normal Not Available [facility] ([facility]) [address] [place], [address], 07/07/2024 17:08:49 07/03/19 25 07/03/2024 CBC WITH DIFFE RENTI AL/PL ATELE T eos 1 % not estab. normal Not Available [facility] ([facility]) [address] [facility], [place], [address], 07/07/2024 17:08:49 07/03/19 25 07/03/2024 CBC WITH DIFFE RENTI AL/PL ATELE T basos 1 % not estab. 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 0 above high normal Not Available [facility] ([facility]) [address] [place], [address], 07/07/2024 17:08:49 07/03/19 25 07/03/2024 CBC WITH DIFFE RENTI AL/PL ATELE T lymphs (absolute) 2.4 x10e3 /uL 0.7-3. 1 normal Not Available [facility] ([facility]) [address] [facility], [place], [address], 07/07/2024 17:08:49 07/03/19 25 07/03/2024 CBC WITH DIFFE RENTI AL/PL ATELE T monocytes(ab solute) 0.5 x10e3 /uL 0.1-0. 9 normal Not Available [facility] ([facility]) [address] [facility], [place], [address], 07/07/2024 17:08:49 07/03/19 25 07/03/2024 CBC WITH DIFFE RENTI AL/PL ATELE T eos (absolute) 0.2 x10e3 /uL 0.0-0. 4 normal Not Available [facility] ([facility]) [address] [facility], [place], [address], 07/07/2024 17:08:49 07/03/19 25 07/03/2024 CBC WITH DIFFE RENTI AL/PL ATELE T baso (absolute) 0.1 x10e3 /uL 0.0-0. 2 normal Not Available [facility] ([facility]) [address] [facility], [place], [address], 07/07/2024 17:08:49 07/03/19 25 07/03/2024 CBC WITH DIFFE RENTI AL/PL ATELE T immature granulocytes 0 % not estab. Not Available [facility] ([facility]) [address] [facility], [place], [address], 07/07/2024 17:08:49 07/03/19 25 07/03/2024 CBC WITH DIFFE RENTI AL/PL ATELE T immature grans (abs) 0.0 x10e3 /uL 0.0-0. 1 Not Available [facility] ([facility]) [address] [facility], [place], [address], 07/07/2024 17:08:49 07/03/19 25 07/03/2024 CBC WITH DIFFE RENTI AL/PL ATELE T NRBC [employer]IE[employer] OFFICER Not Available [facility] ([facility]) [address] [facility] [place], [address], 07/07/2024 17:08:49 07/03/19 25 07/03/2024 CBC WITH DIFFE RENTI AL/PL ATELE T hematology comments: CHIEF [employer] CH[employer] OFFICER Not Available [facility] ([facility]) [address] [facility], [place], [address], 07/07/2024 17:08:49 07/03/19 25 07/03/2024 COMP. METAB OLIC PANEL (12) glucose 123 mg/dL 70-99 above high normal Not Available [facility] ([facility]) [address] [facility], [place], [address], 07/07/2024 17:08:50 07/03/19 25 07/03/2024 COMP. METAB OLIC PANEL (12) BUN 39 mg/dL 8-27 above high normal Not Available [facility] ([facility]) [address] [place], [address], 07/07/2024 17:08:50 07/03/19 25 07/03/2024 COMP. METAB OLIC PANEL (12) creatinine 1.32 mg/dL 0.57-1 .00 above high normal Not Available [facility] ([facility]) [address] [place], [address], 07/07/2024 17:08:50 07/03/19 25 07/03/2024 COMP. METAB OLIC PANEL (12) eGFR 46 mL/mi n/1.7 3 >59 below low normal Not Available [facility] ([facility]) [address] [place], [address], 07/07/2024 17:08:50 07/03/19 25 07/03/2024 COMP. METAB OLIC PANEL (12) BUN/creatini ne ratio 30 12-28 above high normal Not Available [facility] ([facility]) [address] [facility] [place], [address], 07/07/2024 17:08:50 07/03/19 25 07/03/2024 COMP. METAB OLIC PANEL (12) sodium 139 mmol/ L 134-14 4 normal Not Available [facility] ([facility]) [address] [facility] [place], [address], 07/07/2024 17:08:50 07/03/19 25 07/03/2024 COMP. METAB OLIC PANEL (12) potassium 5.4 mmol/ L 3.5-5. 2 above high normal Not Available [facility] ([facility]) [address] [facility] [place], [address], 07/07/2024 17:08:50 07/03/19 25 07/03/2024 COMP. METAB OLIC PANEL (12) chloride 102 mmol/ L 96-106 normal Not Available [facility] ([facility]) [address] [facility] [place], [address], 07/07/2024 17:08:50 07/03/19 25 07/03/2024 COMP. METAB OLIC PANEL (12) calcium 9.8 mg/dL 8.7-10 .3 normal Not Available [facility] ([facility]) [address] [facility] [place], [address], 07/07/2024 17:08:50 07/03/19 25 07/03/2024 COMP. METAB OLIC PANEL (12) protein, total 7.0 g/dL 6.0-8. 5 normal Not Available [facility] ([facility]) [address] [facility] [place], [address], 07/07/2024 17:08:50 07/03/19 25 07/03/2024 COMP. METAB OLIC PANEL (12) albumin 4.2 g/dL 3.9-4. 9 normal Not Available [facility] ([facility]) [address] [facility] [place], [address], 07/07/2024 17:08:50 07/03/19 25 07/03/2024 COMP. METAB OLIC PANEL (12) globulin, total 2.8 g/dL 1.5-4. 5 Not Available [facility] ([facility]) [address] [facility] [place], [address], 07/07/2024 17:08:50 07/03/19 25 07/03/2024 COMP. METAB OLIC PANEL (12) bilirubin, total 0.3 mg/dL 0.0-1. 2 normal Not Available [facility] ([facility]) [address] [facility] [place], [address], 07/07/2024 17:08:50 07/03/19 25 07/03/2024 COMP. METAB OLIC PANEL (12) alkaline phosphatase 82 IU/L 44-121 normal Not Available [facility] ([facility]) [address] [facility], [place], [address], 07/07/2024 17:08:50 07/03/19 25 07/03/2024 COMP. METAB OLIC PANEL (12) AST (SGOT) 13 IU/L 0-40 normal Not Available [facility] ([facility]) [address] [facility] [place], [address], 07/07/2024 17:08:50 07/03/19 25 07/03/2024 VITAM IN D, 25-HY DROXY vitamin D, 25-hydroxy 39.9 NG/mL 30.0-1 00.0 Vitam in D defic iency has been defin ed by the Insti tute of Medic ine and an Endoc rine Socie ty pract ice guide line as a level of serum 25-OH vitam in D less than 20 ng/mL (1,2) . The Endoc rine Socie ty went on to furth er defin e vitam in D insuf ficie ncy as a level betwe en 21 and 29 ng/mL (2). 1. IOM (Inst itute of Medic ine). 2010. Dieta ry refer ence intak es for calci um and D. Ruba mason [place]: The [facility] . 2. Delfin rodriguez MF, Sunil steven [place], Bisch off-F errar i MUNIZ, et al. Evalu ation , treat ment, and preve ntion of vitam in D defic iency : an Endoc rine Socie ty clini hammad pract ice guide line. JCEM. 2010; 96(7) :1911 -30. Not Available [facility] ([facility]) [address] [facility], [place], [address], 07/07/2024 17:08:51 07/03/19 25 07/07/2024 URINE CULTU RE, ROUTI NE urine culture, routine Final report abnormal Not Available [facility] ([facility]) [address] [facility], [place], [address], 07/07/2024 17:08:52 07/03/19 25 07/07/2024 URINE CULTU RE, ROUTI NE result 1 Escher ichia coli abnormal Cefaz marilee with an AINSLEY <=16 predi cts susce ptibi lity to the oral agent s cefac marifer, cefdi balwinder, cefpo doxim e, cefpr ozil, cefur oxime , cepha lexin , and lorac arbef when used for thera py of uncom plica dileep urina ry tract infec tions due to E. coli, Klebs iella pneum oniae , and Prote us mirab ilis. Great er than 100,0 00 colon y formi ng units per mL Not Available [facility] ([facility]) [address] [facility], [place], [address], 07/07/2024 17:08:52 07/03/19 25 07/07/2024 URINE CULTU RE, ROUTI NE antimicrobia l susceptibili ty Commen t S = Susce ptibl e; I = Inter media te; R = Resis tant P = Posit kylie; N = Negat kylie MICS are expre ssed in micro grams per mL Antib iotic RSLT# 1 RSLT# 2 RSLT# 3 RSLT# 4 Amoxi cilli n/Cla vulan ic Acid S Ampic illin S Cefaz marilee S Cefep sander S Cefox itin S Cefpo doxim e S Ceftr iaxon e S Cipro floxa bill S Ertap enem S Genta micin S Levof loxac in S Merop enem S Nitro furan toin S Piper acill in/Ta zobac short S Tetra cycli ne S Tobra mycin S Trime thopr im/Monroy lfa S Not Available [facility] ([facility]) [address] [facility], [place], [address], 07/07/2024 17:08:52 07/03/19 25 07/02/2024 urina lysis , dipst ick Leukocytes Small Not Available [address], [address], 07/02/2024 08:52:19 07/03/19 25 07/02/2024 urina lysis , dipst ick Nitrite positi ve Not Available [address], [address], 07/02/2024 08:52:19 07/03/19 25 07/02/2024 urina lysis , dipst ick Urobilinogen .2 Not Available [address], [address], 07/02/2024 08:52:19 07/03/19 25 07/02/2024 urina lysis , dipst ick Protein Negati ve Not Available [address], [address], 07/02/2024 08:52:19 07/03/19 25 07/02/2024 urina lysis , dipst ick pH 6.0 Not Available [address], [address], 07/02/2024 08:52:19 07/03/1907/02/2024 urina lysis , dipst ick Blood Non-He molyze d: Trace Not Available [address], [address], 07/02/2024 08:52:19 07/03/19 25 07/02/2024 urina lysis , dipst ick Specific [place] 1.030 Not Available [address], [address], 07/02/2024 08:52:19 07/03/19 25 07/02/2024 urina lysis , dipst ick Ketone Negati ve Not Available [address], [address], 07/02/2024 08:52:19 07/03/19 25 07/02/2024 urina lysis , dipst ick Bilirubin Negati ve Not Available [address], [address], 07/02/2024 08:52:19 07/03/19 25 07/02/2024 urina lysis , dipst ick Glucose Negati ve Not Available [address], [address], 07/02/2024 08:52:19 07/03/19 25 07/02/2024 urina lysis , dipst ick Appearance Clear Not Available [address], [address], 07/02/2024 08:52:19 07/03/19 25 07/02/2024 urina lysis , dipst ick Color Dark Yellow Not Available [address], [address], 07/02/2024 08:52:19 07/03/1907/02/2024 HbA1c (hemo globi n A1c), blood HbA1c 5.8 Not Available [address], [address], 07/01/2024 17:38:40 08/08/19 24 08/08/2023 LDCT, chest , for lung cance r scree lizabeth No observ ation record ed. [facility] (Radiology) [address] [place], [address], 08/14/2023 09:25:57 08/08/19 24 08/08/2023 LDCT, chest , for lung cance r scree lizabeth [place] [facility] [address] [place] [address] Phone: Fax: Name: ERMELINDA DOWD Exam Date: 024 : [birth year] Age 63 years Gender : F Access ion: [id number] Physic danica: JAMIE HARRINGTON Facili ty: [facility] Facili ty HSV: Outpat ient Exam: CT CHEST LOW DOSE CT CHEST LOW DOSE SCREEN ING HISTOR Y: Former smoker , quit 2 weeks ago. 80 pack year histor y. COMPAR NIDIA: July 20, 2022. TECHNI QUE: Axial images were obtain ed from the lung apices throug h the midabd omen by comput ed tomogr aphy withou t the admini strati on of contra st. This was perfor med as a low dose chest CT for lung cancer screen ing. This study was perfor med with techni ques to keep radiat ion doses as low as reason almay achiev able, (ALARA ). Indivi dualiz ed dose reduct ion techni ques using automa dileep exposu re contro l or adjust ment of mA and/or kV accord ing to the patien t's size were employ ed. CTDI: 4.14 mGy DLP: 145.99 mGy*cm FINDIN GS: There is no axilla ry adenop athy. There is no medias tinal or hilar adenop athy. Heart size is normal . There is extens kylie multiv essel rodas ry artery calcif icatio n. There is no perica rdial or pleura l effusi on. The lungs demons trate mild emphys eduardo. There are puncta te calcif ied granul omas. There are no suspic ious pulmon lou nodule s or masses . Degene rative change s are identi fied in the spine. Limite d images of the upper abdome n are unrema rkable . IMPRES LISSA: No suspic ious pulmon lou nodule . LUNG RADS Catego ry 1. Recomm end contin ued annual screen ing with low-do se chest CT in 12 months . The films were review ed, interp reted, and dictat ed by Dr. Raegan Mack Transc ribed by Silvana Edge PA-C Dictat ed By: Raegan melendez Transc ribed By: Raegan melendez Transc ribed On: 12:12 PM Electr onical ly signed by: Raegan melendez Thank you for referr ing ERMELINDA DOWD to [facility]. Legall y authen ticate d by MIGUEL Aguirre MD 08-07 12:12: 44 CC'ed Logic: Orderi ng Provid er: LOI AYALA CC Provid er: LOI AYALA Attend ing Provid er: LOI AYALA Referr ing Provid er: LOI AYALA Admitt ing Provid er: LOI hawkins [facility] (Radiology) [address] [place], [address], 08/14/2023 09:25:57 08/09/19 24 08/08/2023 MAMMO , jenni barone, digit al, bilat eral [facility] [address] [place] [address] Phone: Fax: Name: ERMELINDA DOWD Exam Date: : [birth year] Age 63 years Gender : F Access ion: [id number] Physic danica: JAMIE HARRINGTON Facili ty: [facility] Facili ty HSV: Outpat ient Exam: SCREEN MAMMO W CAD BILAT MAMMOG KELSEY SCREEN ING BILATE RAL HISTOR Y: Routin e screen ing exam COMPAR NIDIA: September 23, 2021 TECHNI QUE: Standa rd digita l 2-D views with 3-D tomosy nthesi s DENSIT Y: There are scatte red areas of fibrog landul ar densit y FINDIN GS: Benign calcif icatio ns. Scatte red areas of focal asymme try are noted. No new suspic ious mass, suspic ious calcif icatio ns or nikky ectura l distor tion is presen t. IMPRES LISSA: No mammog raphic eviden ce of malign derrick BI-RAD S 2: Benign findin g RECOMM ENDATI ON: Annual mammog aristides CAD was utiliz ed during interp retati on. The patien t will be sent a letter from the mammog aristides depart ment with their mammog aristides result s. Dictat ed By: Raegan melendez Transc ribed By: Raegan melendez Transc ribed On: 12:52 PM Electr onical ly signed by: Raegan melendez Thank you for referr ing ERMELINDA DOWD to [facility]. Legall y authen ticate d by MIGUEL Aguirre MD 08-08 12:52: 19 CC'ed Logic: Orderi ng Provid er: LOI AYALA CC Provid er: LOI AYALA Attend ing Provid er: LOI AYALA Referr ing Provid er: LOI AYALA Admitt ing Provid er: LOI hawkins [facility] (Radiology) [address] [place] [address] [place], [address], 08/20/2023 11:57:12 08/09/19 24 08/08/2023 MAMMO , scree lizabeth, digit al, bilat eral No observ ation record ed. [facility] Centralized Scheduling [address] [place], [address], 08/20/2023 11:57:13 08/24/19 24 LDCT, chest , for lung cance r scree lizabeth No observ ation record ed. [facility] Scheduling [address] [place], [address], 08/25/2023 11:48:38 08/24/19 24 08/24/2023 US, jordan x, everardot id arter y No observ ation record ed. [email or web address] [facility] [address], [place], [address], 08/25/2023 08:53:21 08/27/19 24 08/24/2023 cardi ac stres s test No observ ation record ed. [email or web address] [address] [facility] [address], [place], [address], 08/27/2023 14:02:25 08/27/19 24 08/24/2023 cardi ac stres s test No observ ation record ed. [place] [address] [facility] [address], [place], [address], 08/27/2023 14:02:01 Result Notes Documentation Provider Name and Address Organization Details Recorded Time Ldct, Chest, For Lung Cancer Screening : [address] [place] [address] Name: ERMELINDA DOWD Exam Date: 08/08/2023 : 1960 Age 63 years Gender: F Physician: JAMIE HARRINGTON Facility: [facility] Facility HSV: Outpatient Exam: CT CHEST LOW DOSE CT CHEST LOW DOSE SCREENING HISTORY: Former smoker, quit 2 weeks ago. 80 pack year history. COMPARISON: July 20, 2022. TECHNIQUE: Axial images were obtained from the lung apices through the midabdomen by computed tomography without the administration of contrast. This was performed as a low dose chest CT for lung cancer screening. This study was performed with techniques to keep radiation doses as low as reasonably achievable, (ALARA). Individualized dose reduction techniques using automated exposure control or adjustment of mA and/or kV according to the patient's size were employed. CTDI: 4.14 mGy DLP: 145.99 mGy*cm FINDINGS: There is no axillary adenopathy. There is no mediastinal or hilar adenopathy. Heart size is normal. There is extensive multivessel coronary artery calcification. There is no pericardial or pleural effusion. The lungs demonstrate mild emphysema. There are punctate calcified granulomas. There are no suspicious pulmonary nodules or masses. Degenerative changes are identified in the spine. Limited images of the upper abdomen are unremarkable. IMPRESSION: No suspicious pulmonary nodule. LUNG RADS Category 1. Recommend continued annual screening with low-dose chest CT in 12 months. The films were reviewed, interpreted, and dictated by Dr. Raegan Mack Transcribed by Yanira Edge PA-C Dictated By: Raegan melendez Transcribed By: Raegan melendez Transcribed On: 08/08/2023 12:12 PM Electronically signed by: Raegan melendez 08/08/2023 Thank you for referring ERMELINDA DOWD to [facility]. Legally authenticated by LAMIN Aguirre MD 2023-08-08 12:12:44 CC'ed Logic: Ordering Provider: LOI AYALA CC Provider: LOI AYALA Attending Provider: LOI AYALA Referring Provider: LOI AYALA Admitting Provider: [place] [facility] 08/14/2023 09:25:57 Mammo, Screening, Digital, Bilateral : [address] [place] [address] Name: ERMELINDA DOWD Exam Date: 08/08/2023 : 1960 Age 63 years Gender: F Physician: JAMIE HARRINGTON Facility: [facility] Facility HSV: Outpatient Exam: SCREEN MAMMO W CAD BILAT MAMMOGRAM SCREENING BILATERAL HISTORY: Routine screening exam COMPARISON: September 23, 2021 TECHNIQUE: Standard digital 2-D views with 3-D tomosynthesis DENSITY: There are scattered areas of fibroglandular density FINDINGS: Benign calcifications. Scattered areas of focal asymmetry are noted. No new suspicious mass, suspicious calcifications or architectural distortion is present. IMPRESSION: No mammographic evidence of malignancy BI-RADS 2: Benign finding RECOMMENDATION: Annual mammography CAD was utilized during interpretation. The patient will be sent a letter from the mammography department with their mammography results. Dictated By: Raegna melendez Transcribed By: Raegan melendez Transcribed On: 08/09/2023 12:52 PM Electronically signed by: Raegan melendez 08/09/2023 Thank you for referring ERMELINDA DOWD to [facility]. Legally authenticated by LAMIN Aguirre MD 2023-08-09 12:52:19 CC'ed Logic: Ordering Provider: LOI AYALA CC Provider: LOI AYALA Attending Provider: LOI AYALA Referring Provider: LOI AYALA Admitting Provider: LOI reno, [employer] 08/20/2023 11:57:12 Problems Name Problem SNOMED Code Status Onset Date Resolution Date Notes Provider Name and Address Organization Details Recorded Time Migraine 86235604 Active 2022 GILBERTO GARCIA [address] [place] [address], [id number] , [employer] 3 17:10:45 Vitamin D deficien cy 93220121 Active 2023 Jamie Harrington APRN [address] [place] [address], [address] , [employer] 4 10:32:56 [facility] hyperten lissa 44127513 Active 2024 Jamie Harrington APRN [address] [place] [address], [phone] , [employer] 5 09:08:18 Tobacco dependen ce caused by cigarett es [id number] 115079 Active 2019 Problem Code: F17.210; Problem Code Type: ICD-10; Not Available [facility] 2 21:18:50 Type 2 diabetes mellitus without complica tion 196953851 Active 2018 Not Available [facility] 21:18:50 Hyperten sive disorder 71540778 Active 2018 Problem Code: I10; Problem Code Type: ICD-10; Not Available [facility] 21:18:50 Embolism of iliac artery 29564476 Completed 202012/19/2021 JOHANNY LEALR null, [employer] 11:27:46 Acute pharyngi tis 322219602 Completed 201810/28/2018 Not Available [facility] 2 21:18:51 Pneumoni a 655619322 Completed 201812/05/2018 Problem Code: J18.9; Problem Code Type: ICD-10; Not Available [facility] 21:18:51 Moderate recurren t major depressi on 55841692 Active 2018 Problem Code: F33.1; Problem Code Type: ICD-10; Not Available [facility] 21:18:51 Allergic rhinitis 08677684 Completed 201912/19/2021 Problem Code: J30.9; Problem Code Type: ICD-10; JOHANNY MYNEAR null, [employer] 11:27:46 Chronic obstruct kylie pulmonar y disease with acute lower respirat ory infectio n 988130209 Completed 201912/19/2021 Problem Code: J44.0; Problem Code Type: ICD-10; JOHANNY MYNEAR null, [employer] 11:27:45 Chronic obstruct kylie pulmonar y disease with acute lower respirat ory infectio n 133572972 Completed 201802/06/2020 Problem Code: J44.0; Problem Code Type: ICD-10; JOHANNY PETERSONNEAR null, [employer] 2 11:27:45 Chronic obstruct kylie pulmonar y disease with acute lower respirat ory infectio n [id number] Completed 201802/06/2020 Problem Code: J44.0; Problem Code Type: ICD-10; JOHANNY NICHOLASNEAR null, [employer] 2 11:27:45 Chronic obstruct kylie pulmonar y disease [id number] Active 2018 Problem Code: J44.9; Problem Code Type: ICD-10; Not Available [facility] 21:18:51 Glossiti s [id number] Completed 201812/05/2018 Problem Code: K14.0; Problem Code Type: ICD-10; Not Available [facility] 2 21:18:51 Gastro-e sophagea l reflux disease with esophagi tis [id number] Active 2018 Problem Code: K21.0; Problem Code Type: ICD-10; Not Available [facility] 2 21:18:52 Pain in limb 84682135 Completed 202012/19/2021 JOHANNY NICHOLASNEAR null, [employer] 2 11:27:46 Cough [id number] Completed 201812/19/2021 Problem Code: R05; Problem Code Type: ICD-10; JOHANNY NICHOLASNEAR null, [employer] 2 11:27:46 Cough [id number] Completed 201905/21/2020 Problem Code: R05; Problem Code Type: ICD-10; JOHANNY NIHCOLASNEAR null, [employer] 2 11:27:46 Upper abdomina l pain [id number] Completed 202012/19/2021 JOHANNY MYNEAR null, [employer] 2 11:27:46 Pyrexia of unknown origin [id number] Completed 202003/15/2021 Problem Code: R50.9; Problem Code Type: ICD-10; Not Available [facility] 21:18:52 Localize d edema [id number] Completed 202012/19/2021 Problem Code: R60.0; Problem Code Type: ICD-10; JOHANNY LEALR null, [employer] 2 11:27:45 Abnormal weight gain [id number] Completed 201905/30/2020 Problem Code: R63.5; Problem Code Type: ICD-10; Not Available [facility] 21:18:53 Breast composit ion [id number] Completed 201810/28/2018 Problem Code: R92.2; Problem Code Type: ICD-10; Not Available [facility] 21:18:53 COVID-19 [id number] Completed 202012/19/2021 Problem Code: U07.1; Problem Code Type: ICD-10; JOHANNY LEALR null, [employer] 2 11:27:46 General examinat ion of patient Completed 201912/19/2021 JOHANNY LEALR null, [employer] 2 11:27:45 General examinat ion of patient Completed 202003/15/2021 JOHANNY NICHOLASNEAR null, [employer] 2 11:27:45 Sampling of vagina for Papanico laou smear Completed 201812/19/2021 Problem Code: Z01.419; Problem Code Type: ICD-10; JOHANNY PETERSONNEAR null, [employer] 2 11:27:45 Screenin g for malignan t neoplasm of colon Completed 201812/19/2021 JOHANNY NICHOLASNEAR null, [employer] 2 11:27:45 Screenin jody chow phy Completed 201911/10/2019 Problem Code: Z12.31; Problem Code Type: ICD-10; JOHANNY reno, [employer] 2 11:27:45 Screenin jody chow phy Completed 201812/19/2021 Problem Code: Z12.31; Problem Code Type: ICD-10; JOHANNY MARINELLI null, [employer] 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 2 11:27:45 Exposure to SARS-CoV -2 Completed 202012/19/2021 Problem Code: Z20.822; Problem Code Type: ICD-10; JOHANNY PETERSONDAVID reno, [employer] 2 11:27:46 Influenz a vaccine needed [id number] 06 Completed 201811/10/2019 Problem Code: Z23; Problem Code Type: ICD-10; JOHANNY PETERSONDAVID reno, [employer] 3 09:52:09 Finding of body mass index 236187302 Active 2019 Problem Code: Z68.41; Problem Code Type: ICD-10; Not Available [facility] 2 21:18:58 Body mass index 40+ - severely obese 942279205 Completed 201905/21/2020 Not Available [facility] 21:18:58 Pain in right knee Completed 202012/19/2021 Problem Code: M25.561; Problem Code Type: ICD-10; JOHANNY MARINELLI null, [employer] 11:27:45 Genuine stress incontin ence 00368076 Active 2019 Problem Code: N39.3; Problem Code Type: ICD-10; Not Available [facility] 21:18:58 Influenz a vaccine needed [id number] 06 Completed 202003/15/2021 Problem Code: Z23; Problem Code Type: ICD-10; JOHANNY MARINELLI null, [employer]. 09:52:09 Problem Notes None recorded. Procedures Surgical History Date Name Laterality Status Provider Name and Address Organization Details Recorded Time 08/08/19 24 Most Recent Mammogram completed JOHANNY MARINELLI [employer]. 01/01/2024 08:06:33 11/14/19 19 Date of Last Pap Smear completed Kay Razo [employer]. 05/10/2022 09:57:03 08/09/19 19 appendectomy completed Not Available [facility] 11/22/2021 22:56:13 08/09/19 19 carotid endarterectomy completed Not Available [facility] 11/22/2021 22:56:16 08/09/19 19 cholecystectomy completed Not Available [facility] 11/22/2021 22:56:16 08/09/19 19 section completed Not Available [facility] 11/22/2021 22:56:17 Imaging Results None recorded. Procedure Notes None recorded. Medical Equipment None Reported. Allergies Allergen ID Allergen Name Allergen Category Reaction Reaction Severity Criticality Documentation Date Start Date Code Code System Note Provider Name and Address Organization Details Recorded Time 52021 Jardiance medicatio n Not available Not available Not available 11/22/2021 [id number] RxNorm Not Available [facility] 22:54:50 Medications Name Sig Start Date Stop Date Status Note LastModified by Organization Details LastModified Time atorvastati n 40 mg tablet TAKE ONE TABLET BY MOUTH EVERY DAY AT bedtime active Not Available Not Available No t Available metformin 500 mg tablet take 1 tablet (500 mg) by oral route 2 times per day with morning and evening meals 05/31 completed Not Available Not Available Not Available bupropion HCl SR 150 mg tablet,12 hr sustained-r elease TAKE ONE TABLET BY MOUTH TWICE DAILY 04/02 completed Not Available Not Available Not Available nystatin 100,000 unit/mL oral suspension take 4 millilite rs (400,000 unit) by oral route 4 times per day for thrush 06/19 completed Not Available Not Available Not Available prednisone 10 mg tablet 09/18 completed Not Available Not Available Not Available atorvastati n 20 mg tablet Take 1 tablet(s) by mouth daily 08/08 completed Not Available Not Available Not Available ipratropium 0.5 mg-albutero l 3 mg (2.5 mg base)/3 mL nebulizatio n soln inhale 3 millilite rs by nebulizat ion route 4 times per day 2018 active Not Available Not Available Not Avai lable lisinopril 20 mg-hydrochl orothiazide 12.5 mg tablet TAKE ONE TABLET BY MOUTH TWICE DAILY 2024 active Not Available Not Available Not Avai lable azithromyci n 250 mg tablet take 2 tablets (500 mg) by oral route once daily for 1 day then 1 tablet (250 mg) by oral route once daily for 4 days 05/23 completed Not Available Not Available Not Available fluconazole 150 mg tablet TAKE ONE TABLET BY MOUTH EVERY DAY 03/08 completed Not Available Not Available Not Available benzonatate 200 mg capsule take 1 capsule (200 mg) by oral route 3 times per day for cough 06/15 completed Not Available Not Available Not Available sumatriptan 100 mg tablet Take 1 tablet at onset of migraine and repeat in 2 hours if no relief. May take 200 mg in a 24 hour period. active Not Available Not Available No t Available lisinopril 20 mg tablet 1 po daily 08/08 completed Not Available Not Available Not Available Medrol (Gui) 4 mg tablets in a dose pack take by oral route as directed per package instructi ons 05/21 completed Not Available Not Available Not Available prednisone 20 mg tablet TAKE 2 TABLETS BY MOUTH ONCE DAILY FOR 5 DAYS 08/02 completed Not Available Not Available Not Available isosorbide mononitrate ER 30 mg tablet,exte nded release 24 hr TAKE ONE TABLET BY MOUTH EVERY DAY active Not Available Not Available No t Available gabapentin 400 mg capsule Take 1 capsule twice a day by oral route. active Not Available Not Available No t Available prednisone 5 mg tablet 10 pills po today and decrease by one pill each day 11/29 completed Not Available Not Available Not Available Zantac 300 mg tablet Take 1 tablet(s) by mouth bid 01/06 completed Not Available Not Available Not Available glipizide ER 5 mg tablet, extended release 24 hr TAKE ONE TABLET BY MOUTH EVERY DAY with breakfast active Not Available Not Available No t Available Nexium 40 mg capsule,del ayed release Take one capsule by mouth twice daily 08/08 completed Not Available Not Available Not Available clopidogrel 75 mg tablet TAKE ONE TABLET BY MOUTH EVERY DAY active Not Available Not Available No t Available dextrometho rphan-guaif enesin 10 mg-100 mg/5 mL oral syrup take 10 millilite rs by oral route every 4 hours as needed prn cough. 03/10 completed Not Available Not Available Not Available amlodipine 5 mg tablet TAKE ONE TABLET BY MOUTH EVERY DAY active Not Available Not Available No t Available ciprofloxac in 500 mg tablet Take 1 tablet (500 mg total) by mouth 2 (two) times daily for 7 days. 12/27 completed Not Available Not Available Not Available Reglan 10 mg tablet take 1 tablet (10 mg) by oral route 4 times per day 30 minutes beforemea ls and at bedtime 02/07 completed Not Available Not Available Not Available aspirin 81 mg tablet,fatimah yed release TAKE ONE TABLET BY MOUTH EVERY DAY active Not Available Not Available No t Available tramadol 50 mg tablet TAKE ONE TABLET BY MOUTH EVERY 6 HOURS NEEDED FOR PAIN UP TO 10 DAYS max of FOUR tablets in 24 hours active Not Available Not Available No t Available ondansetron 8 mg disintegrat ing tablet DISSOLVE ONE TABLET UNDER THE TONGUE EVERY 8 HOURS 08/02 completed Not Available Not Available Not Available Depo-Medrol 80 mg/mL suspension for injection Take 1 mL by injection route. 12/27 completed Not Available Not Available Not Available prednisone 10 mg tablets in a dose pack take as directed X 6 days. 03/10 completed Not Available Not Available Not Available meloxicam 7.5 mg tablet 03/21 completed Not Available Not Available Not Available Tessalon Perles 100 mg capsule take 1 capsule (100 mg) by oral route 3 times per day 05/09 completed Not Available Not Available Not Available Nitrostat 0.[address] 1 tablet under the tongue every 5 minutes until relief is obtained not to exceed 3 tablets in a 15-minute period active Not Available Not Available No t Available Diflucan 100 mg tablet take 1 tablet (100 mg) by oral route once daily 11/29 completed Not Available Not Available Not Available oxycodone-a cetaminophe n 10 mg-325 mg tablet Take 1 tablet twice a day by oral route. 03/28 completed Not Available Not Available Not Available dicyclomine 20 mg tablet TAKE ONE TABLET BY MOUTH FOUR TIMES DAILY FOR 7 DAYS 07/02 completed Not Available Not Available Not Available meclizine 25 mg tablet Take 1 tablet 3 times a day by oral route as needed, for VERTIGO. 06/26 completed Not Available Not Available Not Available doxycycline monohydrate 100 mg capsule take 1 capsule (100 mg) by oral route 2 times per day for 10 days 03/08 completed Not Available Not Available Not Available metformin 1,000 mg tablet TAKE ONE TABLET BY MOUTH TWICE DAILY with morning and evening meals 2024 active Not Available Not Available Not Avai lable ranitidine 150 mg tablet Take 1 tablet(s) by mouth bid 02/07 completed Not Available Not Available Not Available olopatadine 0.1 % eye drops instill 1 drop into affected eye(s) by ophthalmi c route twice daily active Not Available Not Available No t Available Citrucel 500 mg tablet Take 1 tab bby mouth daily. 12/19 completed Not Available Not Available Not Available nicotine 21 mg/24 hr daily transdermal patch apply ONE PATCH TRANSDERM ALLY ONCE DAILY active Not Available Not Available No t Available omeprazole 20 mg capsule,del ayed release 1 po daily before evening meal 12/19 completed Not Available Not Available Not Available hydrochloro thiazide 25 mg tablet 1 po daily 08/08 completed Not Available Not Available Not Available furosemide 20 mg tablet TAKE ONE TABLET BY MOUTH EVERY DAY 2024 active Not Available Not Available Not Avai lable Levaquin 500 mg tablet take 1 tablet (500 mg) by oral route every 24 hours 11/29 completed Not Available Not Available Not Available gabapentin 100 mg capsule Take 1 tablet at bedtime 12/19 completed Not Available Not Available Not Available oxycodone-a cetaminophe n 7.5 mg-325 mg tablet Take 1 tablet(s) by mouth bid as needed 03/21 completed Not Available Not Available Not Available Vitamin D2 1,250 mcg (50,000 unit) capsule Take 1 capsule every week by oral route, for Vitamin D. active Not Available Not Available No t Available ondansetron 4 mg disintegrat ing tablet dissolve ONE tablet in MOUTH every FOUR hours as needed FOR nausea OR vomiting FOR UP TO SEVEN DAYS 07/02 completed Not Available Not Available Not Available cefdinir 300 mg capsule take 1 capsule (300 mg) by oral route every 12 hours x 10 days 03/26 completed Not Available Not Available Not Available topiramate 100 mg tablet TAKE 1 TABLET BY MOUTH DAILY 12/19 completed Not Available Not Available Not Available sertraline 50 mg tablet TAKE 1 TABLET (50 MG) BY ORAL ROUTE ONCE DAILY 03/21 completed Not Available Not Available Not Available Diflucan 200 mg tablet take 1 tablet (200 mg) by oral route once daily for 5 days 05/26 completed Not Available Not Available Not Available atenolol 50 mg tablet TAKE ONE TABLET BY MOUTH EVERY DAY active Not Available Not Available No t Available loratadine 10 mg tablet TAKE ONE TABLET BY MOUTH EVERY DAY active Not Available Not Available No t Available amoxicillin 875 mg-potassiu m clavulanate 125 mg tablet TAKE ONE TABLET BY MOUTH TWICE DAILY with breakfast AND dinner FOR 14 DAYS 07/02 completed Not Available Not Available Not Available Ventolin HFA 90 mcg/actuati on aerosol inhaler Inhale 2 puffs every 4 hours by inhalatio n route as needed. 2024 active Not Available Not Available Not Avai lable Reglan 5 mg tablet take 1 tablet (5 mg) by oral route 4 times per day 30 minutes before meals and at bedtime 10/28 completed Not Available Not Available Not Available esomeprazol e magnesium 20 mg capsule,del ayed release take 1 capsule by mouth at least 1 hour before a meal swsallowi ng whole once daily active Not Available Not Available No t Available Pneumovax-2 3 25 mcg/0.5 mL injection syringe inject 0.5 millilite r by intramusc ular route once 03/10 completed Not Available Not Available Not Available bupropion HCl SR 200 mg tablet,12 hr sustained-r elease Take 1 tablet(s) by mouth bid 08/08 completed Not Available Not Available Not Available azithromyci n 500 mg tablet TAKE 1 TABLET BY MOUTH ONCE DAILY FOR 3 DAYS 08/02 completed Not Available Not Available Not Available bupropion HCl XL 300 mg 24 hr tablet, extended release TAKE ONE TABLET BY MOUTH EVERY DAY FOR depressio n active Not Available Not Available No t Available Spiriva with HandiHaler 18 mcg and inhalation capsules Inhale 1 capsule every day by inhalatio n route for 30 days. 09/18 completed Not Available Not Available Not Available nitrofurant oin monohydrate /macrocryst als 100 mg capsule TAKE ONE CAPSULE BY MOUTH EVERY TWELVE HOURS FOR 7 DAYS FOR uti active Not Available Not Available No t Available Byetta 5 mcg/dose (250 mcg/mL)1.2 mL subcutaneou s pen injector inject 0.02 millilite r (5 mcg) by subcutane ous route 2 times per day before morning and evening meals 06/26 completed Not Available Not Available Not Available ranolazine ER 500 mg tablet,exte nded release,12 hr TAKE ONE TABLET BY MOUTH TWICE DAILY active Not Available Not Available No t Available Levemir FlexPen 100 unit/mL (3 mL) solution subcutaneou s insulin pen INJECT 40 UNITS TWICE DAILY SUBCUTANE OUSLY 01/24 completed Not Available Not Available Not Available BD Ultra-Fine Original Pen Needle 29 gauge x 1/2 USE TO INJECT BYETTA DIRECTED 09/18 completed Not Available Not Available Not Available Symbicort 160 mcg-4.5 mcg/actuati on HFA aerosol inhaler INHALE TWO PUFFS BY MOUTH TWICE DAILY active Not Available Not Available No t Available peg 3350-electr olytes 236 gram-22.74 gram-6.74 gram-5.86 gram solution take as directed active Not Available Not Available No t Available Lantus Solostar U-100 Insulin 100 unit/mL (3 mL) subcutaneou s pen Inject 40 units q AM and inject 40 units at bedtime SQ 2023 active Not Available Not Available Not Avai lable BD Ultra-Fine Stephania Pen Needle 32 gauge x 5/32 use as directed 4 times daily 2024 active Not Available Not Available Not Avai lable Dulera 200 mcg-5 mcg/actuati on HFA aerosol inhaler Inhale 2 puff(s) by mouth bid 12/19 completed Not Available Not Available Not Available Tradjenta 5 mg tablet TAKE 1 TABLET (5 MG) BY ORAL ROUTE ONCE DAILY FOR DIABETES 12/19 completed Not Available Not Available Not Available Combivent Respimat 20 mcg-100 mcg/actuati on solution for inhalation INHALE TWO PUFFS BY MOUTH TWICE DAILY active Not Available Not Available No t Available topiramate XR 100 mg capsule,ext ended release 24 hr TAKE ONE CAPSULE BY MOUTH EVERY DAY active Not Available Not Available No t Available topiramate XR 100 mg capsule sprinkle,ex tended release 24 hr active Not Available Not Available Not Available Jardiance 25 mg tablet take 1 tablet (25 mg) by oral route once daily in the morning 11/02 completed Not Available Not Available Not Available Trulicity 1.5 mg/0.5 mL subcutaneou s pen injector inject 0.5 millilite r (1.5 mg) by subcutane ous route every 7 days 05/13 completed Not Available Not Available Not Available Trulicity 0.75 mg/0.5 mL subcutaneou s pen injector inject 0.5 millilite r (0.75 mg) by subcutane ous route every 7 days 03/15 completed Not Available Not Available Not Available Nexium 24HR 20 mg tablet,fatimah yed release TAKE 1 CAPSULE BY MOUTH AT LEAST 1 HOUR BEFORE A MEAL SWALLOWIN G WHOLE 12/19 completed Not Available Not Available Not Available Ozempic 0.25 mg or 0.5 mg (2 mg/1.5 mL) subcutaneou s pen injector inject 0.5 mg by subcutane ous route once weekly on the same day of each week 12/31 completed Not Available Not Available Not Available Flucelvax Quad (PF) 60 mcg (15 mcg x 4)/0.5 mL IM syringe inject 0.5 millilite r (60 mcg) by intramusc ular route once 08/05 completed Not Available Not Available Not Available Afluria Qd (36 mos up)(PF)60 mcg (15 mcg x4)/0.5 mL IM syringe inject 0.5 millilite r (60 mcg) by intramusc ular route once 03/10 completed Not Available Not Available Not Available Ozempic 1 mg/dose (4 mg/3 mL) subcutaneou s pen injector INJECT ONE MG WEEKLY SUBCUTANE OUSLY FOR DIABETES active Not Available Not Available No t Available Flowflex COVID-19 Antigen Home Test kit DIRECTED 12/19 completed Not Available Not Available Not Available Ozempic 0.25 mg or 0.5 mg (2 mg/3 mL) subcutaneou s pen injector inject 0.5 mg by subcutane ous route once weekly on the same day of each week 08/02 completed Not Available Not Available Not Available Vitals Date Recorded Body height Body mass index (BMI) Body weight Body temperature Heart rate Oxygen saturation Oxygen saturation in Arterial blood by Pulse oximetry Systolic blood pressure Diastolic blood pressure Provider Name and Address Organization Details Last Updated DateTime 5 170.18 cm 37.7 kg/m2 271835. 61 g 97.9 [degF] 84 /min 95 % 95 % 116 mm[Hg] 79 mm[Hg] JOHANNY [employer] 5 08:25:54 Date Recorded Body height Body mass index (BMI) Body weight Body temperature Heart rate Oxygen saturation Oxygen saturation in Arterial blood by Pulse oximetry Systolic blood pressure Diastolic blood pressure Provider Name and Address Organization Details Last Updated DateTime 5 170.18 cm 36.2 kg/m2 031519. 56 g 97.2 [degF] 73 /min 95 % 95 % 113 mm[Hg] 75 mm[Hg] JOHANNY [employer] 5 08:51:25 Date Recorded Body height Body mass index (BMI) Body weight Body temperature Heart rate Oxygen saturation Oxygen saturation in Arterial blood by Pulse oximetry Inhaled oxygen flow rate Systolic blood pressure Diastolic blood pressure Provider Name and Address Organization Details Last Updated DateTime 4 170.18 cm 39.5 kg/m2 337300. 71 g 97.4 [degF] 100 /min 93 % 93 % 2 L/min 121 mm[Hg] 60 mm[Hg] JOHANNY [employer] 4 13:12:06 Date Recorded Body height Body mass index (BMI) Body weight Heart rate Oxygen saturation Oxygen saturation in Arterial blood by Pulse oximetry Systolic blood pressure Diastolic blood pressure Provider Name and Address Organization Details Last Updated DateTime 4 170.18 cm 38.3 kg/m2 777866. 98 g 88 /min 93 % 93 % 120 mm[Hg] 74 mm[Hg] JOHANNY [employer] 4 11:00:01 Date Recorded Body height Body mass index (BMI) Body weight Body temperature Heart rate Oxygen saturation Oxygen saturation in Arterial blood by Pulse oximetry Systolic blood pressure Diastolic blood pressure Provider Name and Address Organization Details Last Updated DateTime 4 170.18 cm 38.4 kg/m2 825869. 13 g 98 [degF] 80 /min 93 % 93 % 135 mm[Hg] 73 mm[Hg] JOHANNY [employer] 4 08:05:55 Social History Question Answer Notes LastModified by Organizat ion Details LastModified Time Tobacco Smoking Status Former Smoker stopped 1 week ago JOHANNY reno [facility] [employer] 08/03/2023 13:14:53 Do You Have An Advance Directive? No Information not available 12/19/2021 Is Your Home Air Conditioned? Yes Information not available 12/19/2021 Do You Wear A Helmet When Biking? No Information not available 12/19/2021 Are You Blind Or Do You Have Difficulty Seeing? No Information not available 12/19/2021 What Is Your Level Of Caffeine Consumption? Occasional [id number] Information not available 05/26/2022 Are You A Caregiver? No Information not available 12/19/2021 In The 14 Days Before Symptom Onset, Have You Had Close Contact With A Laboratory-confir med COVID-19 While That Case Was Ill? No Information not available 12/19/2021 In The 14 Days Before Symptom Onset, Have You Had Close Contact With A Person Who Is Under Investigation For COVID-19 While That Person Was Ill? No Information not available 12/19/2021 Have You Been To An Area Known To Be High Risk For COVID-19? No Information not available 12/19/2021 Are You Deaf Or Do You Have Serious Difficulty Hearing? No Information not available 12/19/2021 What Type Of Diet Are You Following? DIABETIC Information not available 12/19/2021 Have There Been Any Changes To Your Family Or Social Situation? No Information no t available 12/19/2021 Are There Any Guns Present In Your Home? No Information not available 12/19/2021 Where Do You Live? [place] Information not available 12/19/2021 Do You Have A Medical Power Of Seo Analyst? No Information not available 12/19/2021 What Was The Date Of Your Most Recent Tobacco Screening? 07/02/2024 Information not available 07/02/2024 What Is Your Current Pack Years? [id number] s [id number] Information not available 05/26/2022 Do You Have Any Pets? No Information not available 12/19/2021 What Is Your Relationship Status? [id number] Information not available 05/26/2022 Do You Use Your Seat Belt Or Car Seat Routinely? Yes Information not available 12/19/2021 Do You Have Smoke And Carbon Monoxide Detectors In Your Home? Yes Information not available 12/19/2021 At What Age Did You Start Smoking Tobacco? 15 Information not available 12/19/2021 Are You Passively Exposed To Smoke? Yes Information no t available 12/19/2021 Are There Any Smokers In Your House? Yes Information not available 12/19/2021 How Much Tobacco Do You Smoke? 0.5 PPD [id number] Information not available 05/26/2022 Do You Participate In Social Media? Yes Information not available 12/19/2021 Do You Use Sunscreen Routinely? No Information not available 12/19/2021 Has Tobacco Cessation Counseling Been Provided? No Information not available 12/19/2021 How Many Years Have You Smoked Tobacco? 46 Information not available 12/19/2021 Have You Recently Traveled Abroad? No Information not available 12/19/2021 Do You Have Difficulty Walking Or Climbing Stairs? No Information not available 12/19/2021 Are You Currently In School? No Information not available 12/19/2021 Do You Have Any Dietary Restrictions? Yes Information not available 12/19/2021 Sex: Female Functional Status Question Answer Note LastModified by Organizat ion Details LastModified Time Do you use any illicit or recreational drugs? No Information not available 12/19/2021 Do you or have you ever used any other forms of tobacco or nicotine? No Information not available 12/19/2021 What is your level of alcohol consumption? None Information not available 12/19/2021 Are you currently employed? No [email or web address] Information not available 05/26/2022 Do you have transportation difficulties? No Information not available 12/19/2021 Are you able to walk? YESWOREST Information not available 12/19/2021 Do you have difficulty doing errands alone? No Information not available 12/19/2021 Are you able to care for yourself? Yes Information not available 12/19/2021 Do you have difficulty dressing or bathing? No Information not available 12/19/2021 Mental Status Question Answer Note LastModified by Organization D etails LastModified Time Do you have difficulty concentrating, remembering or making decisions? No Information no t available 12/19/2021 Family History Relationship Description Onset Age of this Age Resolved Age Notes LastModified by Organization Details LastModified Time Father No current problems or disability [email or web address] Not available 12/19 11:28:18 Mother No current problems or disability [email or web address] Not available 12/19 11:28:18 Medical History Condition Response Diabetes Y Coronary Artery Disease Y Reflux/GERD Y High Cholesterol Y Hospitalizations N Acid Reflux (GERD) Y Emergency room visit since last appointm ent. N Hypertension Y Depression Y COPD Y Gynecological History Statement/Question Response Date of Last Pap Smear 11/13/2018 Most Recent Mammogram 08/08/2023 Obstetrics History GPAL:G 0 P 0 0 0 0 Immunizations Vaccine Type Date Status Note Provider Nam e and Address Organization Details Recorded Time Influenza, split virus, quadrivalent, PF 2 completed JOHANNY reno, [employer] 12/19/2021 12:53:17 Influenza, split virus, quadrivalent, PF 4 completed Jamie Harrington APRN [address] [place] [address], [address], [employer] 04/08/2023 16:20:52 RSV, recombinant, protein subunit RSVpreF, adjuvant reconstituted, 0.5 mL, PF 4 completed Jamie Harrington APRN [address] [place], [address], [employer] 06/27/2023 17:36:50 Influenza, split virus, trivalent, PF 4 completed Jamie Harrington APRN [address] [place], [address], [employer] 01/01/2024 09:12:32 COVID-19, mRNA, LNP-S, PF, 30 mcg/0.3 mL dose 1 completed JOHANNY MYNEAR null, [employer] 03/21/2022 09:49:12 COVID-19, mRNA, LNP-S, PF, 100 mcg/0.5mL dose or 50 mcg/0.25mL dose 1 completed Not Available [facility] 03/28/2023 13:42:05 Influenza, split virus, quadrivalent, PF 1 completed JOHANNY MYNEAR null, [employer] 03/21/2022 09:49:12 Influenza, MDCK, quadrivalent, preservative 9 completed JOHANNY MYNEAR null, [employer] 03/21/2022 09:49:12 pneumococcal polysaccharide PPV23 0 completed JOHANNY MYNEAR null, [employer] 03/21/2022 09:49:12 Influenza, split virus, quadrivalent, preservative 0 completed JOHANNY MYNEAR null, [employer] 03/21/2022 09:49:12 Influenza, split virus, trivalent, preservative 5 completed JOHANNY MYNEAR null, [employer] 03/21/2022 09:49:12 Influenza, split virus, trivalent, preservative 9 completed JOHANNY MYNEAR null, [employer] 03/21/2022 09:49:12 pneumococcal polysaccharide PPV23 5 completed JOHANNY MYNEAR null, [employer] 03/21/2022 09:49:12 COVID-19, mRNA, LNP-S, PF, 30 mcg/0.3 mL dose 1 completed JOHANNY MYNEAR null, [employer] 03/21/2022 09:49:12 Influenza, MDCK, trivalent, PF 6 completed JOHANNY MYNEAR null, [employer] 03/21/2022 09:49:12 Influenza, split virus, trivalent, preservative 2 [facility] 09:49:12 Past Encounters Encounter ID Performer Location Encounter Start Date Encounter Closed Date Diagnosis/Indication Diagnosis SNOMED-CT Code Diagnosis ICD10 Code Diagnosis Note [id number] Jamie Harrington, [place] [phone] 12/19/2021 10:29:15 12/19/2021 11:59:23 Type 2 diabetes mellitus without complication 141783368 E11.9 Administra tion of influenza vaccine 37593035 Z23 Recurrent major depression 38016368 F33.9 [id number] [place] [address] 03/21/2022 09:41:57 03/21/2022 10:28:22 Type 2 diabetes mellitus without complication 395082420 E11.9 Stop smoking, ADA diet again emphasized . Hypertensive disorder 38 219749 I10 Lower salt intake. Chronic ob structive pulmonary disease 92325916 J44.9 Trial Symbicort and refer to Pulmonolog y for PFT and consult Atheroscle rosis of coronary artery without angina pectoris 9790089759 10148 I25.10 Add Imdur, refill nitroglyce rin Refer back to [facility] for f/up, likely needs echo and nuclear stress. Carotid ar page occlusion 130630668 I65.29 Left carotid 100% and right 50% 09/2021. Has PAD with BLE leg stents. On statin and plavix, continues to smoke. [id number] Jamie Harrington [address] [address] 05/23/2022 10:19:04 05/23/2022 11:16:51 Candidiasis of mouth 78571004 B37.0 Rinse mouth with water and spit after each inhaler and neb tx. Stop smoking. I inst her that if sx do not resolve with this plan, she is to contact me as she will need further eval by ENT. [id number] Diaz Reyes DO [facility] [address] [facility] [place] [address] 05/26/2022 09:44:47 05/26/2022 17:52:33 Atherosclerosis of coronary artery without angina pectoris 5815428126 05667 I25.10 It is my recommenda tion that patient's PCP fill this form out. I do not feel comfortabl e filling it out not knowing what the reason he needs filled out he will. I would also recommendi ng patient to possibly see her pain management who also signed the form since he is the one prescribin g controlled medication s. Chronic ob structive pulmonary disease 74235306 J44.9 Gastro-eso phageal reflux disease with esophagitis 830313785 K21.00 Hypertensive disorder 38 816412 I10 Moderate r ecurrent major depression 16603474 F33.1 Type 2 jewel betes mellitus without complication 117786345 E11.9 [id number] Kentrell Perez MD [address] [address] 06/08/2022 10:54:04 06/08/2022 11:48:33 History and physical examination, administrative 11881591 Z02.9 [id number] Jamie Harrington[address] [address] 06/19/2022 09:46:36 06/19/2022 10:31:29 Type 2 diabetes mellitus without complication 847308449 E11.9 Stop smoking, ADA diet again emphasized . Increase Lantus to 40 u Q HS and add Glipizide. She could not tolerate SGLT2 meds due to yeast vaginitis. Recurrent major depression 33178132 F33.9 [id number] Jamie Harrington [address] [address] 09/18/2022 08:46:26 09/18/2022 09:42:10 Type 2 diabetes mellitus without complication 966219917 E11.9 Increase insulin to 20 units q AM, continue 40 units q PM Hypertensive disorder 38 095113 I10 Lower salt intake. Add Amlodipine 5 mg once daily for BP control. Weight loss and exercise encouraged . Vitamin D deficiency 347 86082 E55.9 Hepatitis C screening 41 0484782 Z11.59 Recurrent major depression 20239321 F33.9 Atheroscle rosis of coronary artery without angina pectoris 8880404592 73767 I25.10 Allergic rhinitis 145132 04 J30.9 Chronic ob structive pulmonary disease 40518922 J44.9 Continue Symbicort, nebs, stop smoking!! [id number] [place] [address] 11/03/2022 08:33:43 11/03/2022 09:11:31 Pain of right hip joint 5207097894 40416 M25.551 Suspect trochanter ic bursitis. She declined PT today. CESAR. [id number] [place] [address] 12/27/2022 10:08:11 12/27/2022 14:33:10 Acute exacerbation of chronic obstructive pulmonary disease 497437425 J44.1 Continue nebs, inhalers, mucinex. Type 2 jewel betes mellitus without complication 580427235 E11.9 Increase Levemir to 40 units twice daily Nausea 635806256 R11.0 Stop Iggy and see if nausea improves. [id number] SHANT PERALES, [place] [address] 03/08/2023 16:43:19 03/08/2023 17:19:41 Migraine 90390389 G43.909 Nausea 249644251 R11.0 [id number] Jamie Harrington [place] [phone] 03/28/2023 13:41:16 03/29/2023 17:39:25 Type 2 diabetes mellitus without complication 693435601 E11.9 Will try obtaining Ozempic again for her as Iggy is not working. DM diet, and weight oss again encouraged . Vitamin D deficiency 347 01419 E55.9 Fatigue 29806953 R53.83 Chronic ob structive pulmonary disease 62877411 J44.9 Trial Breztri and continue, nebs, stop smoking!! Migraine 75354027 G43.90 9 Has failed topamax, Imitrex, Maxalt. I have given her a sample of Ubelvry to try and she was inst on use. Administra tion of influenza vaccine 44423733 Z23 Tobacco de pendence caused by cigarettes 2788052042 5966004 F17.210 Body mass index 40+ - severely obese 919589998 Z68.41 [id number] [place] [address] 06/27/2023 08:17:59 06/27/2023 09:22:22 Type 2 diabetes mellitus without complication 234906216 E11.9 Increase Ozempic to 1 mg weekly. Lesion of lip 847070170 K13.0 Aggressive lower lip lesion Active or passive immunization 919188004 Z23 [id number] [place] [address] 08/03/2023 12:28:55 08/03/2023 13:38:47 Acute hypoxemic respiratory failure 068002389 J96.01 Progressiv e COPD with respirator y failure and AMIRA intolerant to CPAP. Acute exac erbation of chronic obstructive pulmonary disease 675943769 J44.1 Continue nebs, inhalers, mucinex, and oxygen. Complete the prednisone from hospital d/c. Acute kidney injury 1466 9001 N17.9 Continue to hold Lasix until renal labs returned. She is euvolemic today. Tobacco de pendence caused by cigarettes 5713624310 2453693 F17.210 RX for Nicoderm patch and smoking cessation encouraged . Atheroscle rosis of coronary artery without angina pectoris 6226082028 63963 I25.10 [id number] Jamie Harrington [place] [phone] 10/01/2023 10:47:45 10/01/2023 11:44:24 Type 2 diabetes mellitus without complication 202352677 E11.9 Continue Ozempic at 1 mg weekly. Recurrent major depression 97182567 F33.9 Refill Wellbutrin today. Body mass index 30+ - obesity 961637247 Z68.38 [id number] [place] [phone] 01/01/2024 07:52:46 01/01/2024 08:51:28 Administration of influenza vaccine 37317596 Z23 Type 2 jewel betes mellitus without complication 944183342 E11.9 Continue Ozempic at 1 mg weekly. No med changes. Vitamin D deficiency 347 21316 E55.9 Moderate r ecurrent major depression 79378316 F33.1 Change wellbutrin to 300 mg XL daily. [id number] [place] [address] 04/02/2024 08:06:22 04/02/2024 09:00:53 Type 2 diabetes mellitus without complication 197715896 E11.9 Continue Ozempic at 1 mg weekly. No med changes. 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 Dysuria 63462067 R30.0 Acute urin lou tract infection 683855931 N39.0 Patient presents with symptoms of UTI. Results of dipstick were positive for UTI. Advised to drink clear fluids, reduce sexual activity, Tylenol for pain and take prescribed medication s as instructed . Patient encouraged to follow up within 1 week if not improving. Vitamin D deficiency 347 74607 E55.9 Essential hypertension 70192006 I10 Health Concerns Section Related Observation LastModified by Organization Detai ls LastModified Time None Recorded Concern Status LastModified by Organization Details LastModified Time None Recorded Advance Directives Directive N: Payers Insurance Date Sequence Insurance Name Policy Number Policy Nayak Covered Member ID Nayak Member ID Guarantor Name 06/13/2024 SLIDING FEE SCHEDULE - DISCOUNT Ermelinda Dowd 08/14/2024 [place] [facility] WRAP BILLING (MEDICAID) Ermelinda Dowd [id number] Ermelinda Dowd 07/21/2024 1 [employer] [place] (MEDICAID HMO) Ermelinda Dowd [id number] Ermelinda Dowd Notes Date Note Type Note Provider Name and Address Organization Details Recorded Time 08/03/2023 text/html Hospitalization Contact RecordReported bypatient.Follow UpHospital: ([facility] date of discharge: (Please enter in format 'MM/DD/YYYY') (07/29/23)Notes:Maria Guadalupe millard with COPD who is still smoking was admitted to [facility] after she developed atypical CP at home. ACS was ruled out. She has DM2, CAD, PAD, and carotid stenosis s/p cardiac and leg stents and endarectomy. She was previously dx with AMIRA but is intolerant to CPAP. Likely needs Trelegy AVAP. Ermelinda was admitted due to hypoxic resp failure, COPD exacerbation, and NIMO. She admits s she has not seen Cardio in several years. She has not smoked since hospital discharge but needs help with cessation. She is using home oxygen and nebs. Does feel improved. Lasix was held at d/c due to NIMO, she has not noted edema increase since d/c off the lasix. Jamie Harrington APRN [address] [place], [address], [employer] 08/05/2023 18:42:17 10/01/2023 text/html Diabetes F/URepo rted bypatient.Review finger sticks:post lunch: 240; post dinner: 260 Labs:last A1C result: 8.3 Context:seeing eye doctor regularly; checking feet regularly; taking aspirin daily; no side effects from medications Associated Symptoms:no weight gain; no weight loss; no dizziness; no sweats; no headaches; no confusion; no increased thirst; no increased appetite; no increased urination; no blurred vision;numbness of feet;calluses on feetNotes:Has lost some weight wth Ozempic and A1c is improved today Needs refill on wellbutrin today. Mood stable. Jamie Harrington APRN [address] [place], [address], [employer] 10/14/2023 20:22:15 01/01/2024 text/html Anxiety/Depressi onRepo rted bypatient.Severity:den ies suicidal ideations;mood worse;interference with activities of daily living Duration:chronic Onset/Timing:gradual; frequent Context:chronic pain;recent medical event;cardiac disease;major life stressors;family problems;bereavement Modifying Factors:social support; medications as directed Associated Symptoms:denies homicidal ideations; no significant weight gain; no visual/auditory hallucinations; no delusions;depression;g rieving;anhedonia;low self-esteem;HTNDiabete s F/UReported bypatient.Review finger sticks:fastin Labs:last A1C result: 7.2 Context:seeing eye doctor regularly; checking feet regularly; taking aspirin daily; no side effects from medications Associated Symptoms:no weight gain; no dizziness; no sweats; no headaches; no confusion; no increased thirst; no increased appetite; no increased urination; no blurred vision;weight loss ( lbs);numbness of feet;calluses on feetNotes:Ozempic has been very helpful for her. Weight loss has helped her in a myriad of ways and her A1c is substantially improved. Hx vit d deficiency Jamie Harrington APRN [address] [place], [address], [employer]. 01/01/2024 09:16:00 04/02/2024 text/html Diabetes F/URepo rted bypatient.Review finger sticks:fastin Labs:last A1C result: 6.2 Context:seeing eye doctor regularly; checking feet regularly; taking aspirin daily; no side effects from medications Associated Symptoms:no weight gain; no dizziness; no sweats; no headaches; no confusion; no increased thirst; no increased appetite; no increased urination; no blurred vision;weight loss (5 lbs);numbness of feet;calluses on feetNotes:Ermelinda feels well today. She is pleased with her progress in her diabetes control and weight loss with Ozempic. Jamie Harrington APRN [address] [place], [address], [employer] 04/02/2024 11:25:25 07/02/2024 text/html Diabetes F/URepo rted bypatient.Review finger sticks:fastin Labs:last A1C result: 6.2 Context:seeing eye doctor regularly; checking feet regularly; taking aspirin daily; no side effects from medications Associated Symptoms:no weight gain; no dizziness; no sweats; no headaches; no confusion; no increased thirst; no increased appetite; no increased urination; no blurred vision;weight loss (5 lbs);numbness of feet;calluses on feetHypertension F/UReported bypatient.Medications: taking medications as directed; no side effects from medication Lifestyle:not exercising regularly Associated Symptoms:no dizziness; no lightheadedness; no chest pain; no shortness of breath; no palpitations; no edema; no calf pain with exertion; no headacheLower Urinary Tract Symptoms (LUTS)Reported bypatient.Quality:pres sure Severity:moderate Duration:2-3 weeks Context:excessive caffeine intake Associated Symptoms:urgency;frequ ency;dysuria;mixed incontinence;suprapubi c pain Needs f/up on Vit D deficiency. Jamie Harrington APRN [address] [facility], [place], [address], [employer] 07/20/2024 20:40:10 OBGyn Episode No OBEpisode recorded.
--- NOTE | 2024-09-01 11:15 | CA_ITS ---
APPROVED REPORT EXAM: Comprehensive 2D, Doppler, and color-flow Echocardiogram Quality Lab Technician: Nilda Brock CRT Ht: 5 ft 7 in Wt: 228lbs BSA: 2.14 BP: 104/73 mmHg Indications: Dizziness, PRE OP COLONOSCOPY 2D Dimensions LA Volume 49.90 mL LA Volume Index 22.80 mL/m2 (M/F) 16-34 M-Mode Dimensions RVDd 2.60 cm (0.9-2.6) LA Diam 4.08 cm (1.9-4.0) LVDd 5.00 cm (3.5-5.7) LVDs 3.32 cm (3.5-5.7) IVSd 1.44 cm (0.6-1.1) PWd 0.64 cm (0.6-1.1) EF (Teich) 62.10% FS 33.60% EDV (Teich) 118.20 mL TAPSE 1.94 (<1.7) ESV (Teich) 44.80 mL LV Diastology E Decel Time 150 (160-240 msec) E/A Ratio 0.73 MED A' 8.50 cm/s LAT A' 10.60 cm/s Aortic Valve AO Peak GR. 5.80 mmHg Mitral Valve MV E Max Leroy. 57.0 (40-130 cm/s) MV A Velocity 78.0 (40-130 cm/s) E/A Ratio 0.73 MV PHT 44.0 ms Pulmonary Valve PV Peak Velocity 202.0 (50-150 cm/s) Tricuspid Valve TR P. Velocity 248.00 cm/s RAP Estimate 10.00 mmHg RVSP 34.60 mmHg Left Ventricle The left ventricle is normal size. The left ventricular systolic function is normal. The left ventricular ejection fraction is within the normal range. There is increased LV wall thickness. There is normal LV segmental wall motion. Transmitral Doppler flow pattern suggests impaired LV relaxation. LVEF is 60%. Right Ventricle The right ventricle is normal size. The right ventricular systolic function is normal. Atria Left atrium is mildly dilated. Right atrium is mildly dilated. There is no Doppler evidence of interatrial shunt. Aortic Valve Aortic valve is mildly thickened. There is no aortic valvular stenosis. No aortic regurgitation is present. Mitral Valve The mitral valve is normal in structure. No evidence of mitral valve stenosis. Mild mitral regurgitation. Tricuspid Valve Tricuspid valve is grossly normal in structure and function. Mild tricuspid regurgitation. RVSP is normal. Pulmonic Valve The pulmonary valve is normal in structure. Trace pulmonic regurgitation. Great Vessels The aortic root is normal in size. IVC is normal in size and collapses >50% with inspiration. Pericardium There is no pericardial effusion. Other Information Study Quality: Fair Conclusion Normal biventricular systolic function. Mild biatrial dilation. Mild MR, mild TR. Electronically signed by : Maria Elena Marley MD 09/06/2024 21:35:35
== END 2024-09-01 23:59 | disposition home or self-care (01) ==
LOC: RT 10:46
PROVIDERS: PCP Nurse Practitioner Family; Visit Provider Nurse Practitioner
DX: Z01.810 Encounter for preprocedural cardiovascular examination (principal); I25.118 Atherosclerotic heart disease of native coronary artery with other forms of angina pectoris; I08.1 Rheumatic disorders of both mitral and tricuspid valves
CPT/HCPCS: 93306

== ENCOUNTER 2024-12-16 06:49 | Outpatient (RCR) | payer MEDICAID, SELFPAY | END 2024-12-16 23:59 | disposition home or self-care (01) | LOC: PT.CARL 06:49 | PROVIDERS: Visit Provider Physician Assistant | DX: M51.369 Other intervertebral disc degeneration, lumbar region without mention of lumbar back pain or lower extremity pain (principal); M16.11 Unilateral primary osteoarthritis, right hip; M54.50 Low back pain, unspecified | CPT/HCPCS: 97162 ==

== ENCOUNTER 2024-12-24 10:00 | Outpatient (RCR) | payer MEDICAID, SELFPAY | END 2025-01-07 09:31 | disposition home or self-care (01) | LOC: PT.CARL 10:00 | PROVIDERS: Visit Provider Physician Assistant | DX: M51.360 Other intervertebral disc degeneration, lumbar region with discogenic back pain only (principal); M16.11 Unilateral primary osteoarthritis, right hip | CPT/HCPCS: 97110 ==

== ENCOUNTER 2025-01-15 14:00 | Outpatient (RCR) | payer MEDICAID, SELFPAY | END 2025-01-15 23:59 | disposition home or self-care (01) | LOC: PT.CARL 14:00 | PROVIDERS: PCP Nurse Practitioner Family; Visit Provider Orthopaedic Surgery | DX: Z47.89 Encounter for other orthopedic aftercare (principal); Z96.641 Presence of right artificial hip joint | CPT/HCPCS: 97110; 97161 ==

== ENCOUNTER 2025-02-05 12:00 | Outpatient (RCR) | payer MEDICAID, SELFPAY | END 2025-02-05 23:59 | disposition home or self-care (01) | LOC: PT.CARL 12:00 | PROVIDERS: PCP Nurse Practitioner Family; Visit Provider Orthopaedic Surgery | DX: Z47.1 Aftercare following joint replacement surgery (principal); Z96.643 Presence of artificial hip joint, bilateral | CPT/HCPCS: 97110; 97116; 97530 ==

== ENCOUNTER 2025-02-16 13:34 | Outpatient (RCR) | payer MEDICAID, SELFPAY | END 2025-02-19 17:15 | disposition home or self-care (01) | LOC: PT.CARL 13:34 | PROVIDERS: PCP Nurse Practitioner Family; Visit Provider Orthopaedic Surgery | DX: Z96.641 Presence of right artificial hip joint (principal) | CPT/HCPCS: 97110 ==